=== PATIENT | male | born 1955 | race Hispanic/Latino ===

== ENCOUNTER 2018-06-21 09:46 | Emergency (ER) | payer MEDICARE ==
[~2018-06-21] VITALS: Ht 177.8 cm; Wt 170.0 kg
[~2018-06-21 09:46] MED LIST: DILAUDID8 MG OR; HYDROCO/APAP1 TAB OR; METHADONE5 MG OR; MUSCLE EX; NEURONTIN300 MG OR; SANCTURA20 MG OR; VESICARE5 MG OR
[2018-06-21 10:18] LABS: HEMATOCRIT 35.4 % (39.0-50.0); IMMATURE GRANULOCYTES 0.5 % (0.0-5.0); MEAN CELL VOLUME 86.6 fL CALC (80.0-100.0); MEAN CORPUSCULAR HGB 29.8 pG CALC (26.0-32.0); MEAN CORPUSCULAR HGB CONC 34.5 g/L CALC (32.0-36.0); NEUT# 11.21 thou/uL (1.82-7.42); RED BLOOD COUNT 4.09 mill/uL (4.70-6.10); RED CELL DISTRI WIDTH 12.2 % (11.5-15.5)
[2018-06-21 10:27] LABS: ALBUMIN 3.1 g/dL (3.2-5.0); BILIRUBIN, TOTAL 1.8 mg/dL (0.0-1.4); BUN 8 mg/dL (8-23); BUN/CREATININE RATIO 12 (12-20 (CALC)); CARBON DIOXIDE 23 mmol/l (22-30); CHLORIDE 97 mmol/l (95-108); CREATININE 0.6 mg/dL (0.7-1.3); GFR > 60 ML/MIN (>=60 (CALC)); GFR FOR AFR.AMER. > 60 ML/MIN (>=60 (CALC)); LIPASE 26 u/l (23-300); TOTAL PROTEIN 6.5 g/dL (6.3-8.2)
[2018-06-21 10:28] LABS: ALKALINE PHOSPHATASE 410 u/l (38-126); ANION GAP 13 (6-22 (CALC)); POTASSIUM 4.1 mmol/l (3.5-5.1); SGOT/AST 70 u/l (19-48); SODIUM 129 mmol/l (137-146)
[2018-06-21 10:29] LABS: HEMOGLOBIN 12.2 g/dl (14.0-18.0)
[2018-06-21 10:29] LABS: URINE BILIRUBIN - DIPSTICK NEGATIVE (NEGATIVE); URINE BLOOD DIPSTICK NEGATIVE (NEGATIVE); URINE COLOR YELLOW; URINE GLUCOSE - DIPSTICK NEGATIVE (NEGATIVE); URINE KETONE NEGATIVE (NEGATIVE); URINE LEUK ESTERASE NEGATIVE (NEGATIVE); URINE NITRITE - DIPSTICK NEGATIVE (Negative); URINE PH 6.5 (4.5-8.0); URINE PROTEIN - DIPSTICK NEGATIVE (NEG-TRACE); URINE SPECIFIC GRAVITY <=1.005
[2018-06-21 12:30] VITALS: BP 92/61
== END 2018-06-21 12:45 ==
LOC: ED 09:46
PROVIDERS: Family Medicine
DX: A41.9 Sepsis, unspecified organism (principal); I48.91 Unspecified atrial fibrillation; T81.89XA Other complications of procedures, not elsewhere classified, initial encounter; Y83.6 Removal of other organ (partial) (total) as the cause of abnormal reaction of the patient, or of later complication, without mention of misadventure at the time of the procedure; J43.9 Emphysema, unspecified; J84.10 Pulmonary fibrosis, unspecified
CPT/HCPCS: Q9967

== ENCOUNTER 2020-09-03 15:48 | Observation (INO) | payer MEDICARE ==
[~2020-09-03] VITALS: Ht 157.5 cm; Wt 77.0 kg
--- NOTE | 2020-09-03 15:50 | NUR ---
TO ROOM VIA WHEELCHAIR IN STABLE CONDITION
[2020-09-03] MEDS ORDERED: DILAUDID4 MG PO (16:15)
[2020-09-03] MEDS ORDERED: MORPHINE SUL30 M3 PO (16:15)
[2020-09-03] MEDS ORDERED: TAMSULOSIN HCL0.4 MG PO (16:16)
[2020-09-03] MEDS ORDERED: CYCLOBENZAPR5 MG PO (16:16)
[2020-09-03 16:34] LABS: IMMATURE GRANULOCYTES 0.3 % (0.0-5.0); MEAN CELL VOLUME 86.4 fL CALC (80.0-100.0); MEAN CORPUSCULAR HGB 29.7 pG CALC (26.0-32.0); MEAN CORPUSCULAR HGB CONC 34.4 g/dL CAL (32.0-36.0); NEUT# 9.41 thou/uL (1.82-7.42); RED BLOOD COUNT 4.85 mill/uL (4.70-6.10); RED CELL DISTRI WIDTH 12.2 % (11.5-15.5)
[2020-09-03 16:35] LABS: HEMATOCRIT 41.9 % (39.0-50.0); HEMOGLOBIN 14.4 g/dl (14.0-18.0)
--- NOTE | 2020-09-03 16:40 | NUR ---
TREATMENTS COMPLETED AND PT DENIES ANY NEEDS AT THIS TIME. PT NOT ABLE TO STAND ON HIS OWN, IS VERY SHAKY. FAMILY AT BEDSIDE
[2020-09-03 16:52] LABS: ALBUMIN 3.7 g/dL (3.2-5.0); ALKALINE PHOSPHATASE 234 u/l (38-126); ANION GAP 13 (6-22 (CALC)); BUN 12 mg/dL (8-23); BUN/CREATININE RATIO 17 (12-20 (CALC)); CARBON DIOXIDE 25 mmol/l (22-30); CHLORIDE 95 mmol/l (95-108); CREATININE 0.7 mg/dL (0.7-1.3); GFR > 60 ML/MIN (>=60 (CALC)); GFR FOR AFR.AMER. > 60 ML/MIN (>=60 (CALC)); MAGNESIUM 1.8 mg/dL (1.6-2.3); POTASSIUM 3.9 mmol/l (3.5-5.1); SGOT/AST 51 u/l (19-48); SODIUM 129 mmol/l (137-146); TOTAL PROTEIN 7.6 g/dL (6.3-8.2)
[2020-09-03 16:56] LABS: BILIRUBIN, TOTAL 0.6 mg/dL (0.0-1.4)
--- NOTE | 2020-09-03 17:30 | NUR ---
SECOND SET OF BC COLLECTED AND ANTIBIOTICS GIVEN. DISCUSSED PENDING ADMISSION WITH PT.
[2020-09-03 18:01] LABS: URINE BILIRUBIN - DIPSTICK NEGATIVE (NEGATIVE); URINE BLOOD DIPSTICK NEGATIVE (NEGATIVE); URINE COLOR YELLOW; URINE GLUCOSE - DIPSTICK NEGATIVE (NEGATIVE); URINE KETONE NEGATIVE (NEGATIVE); URINE LEUK ESTERASE NEGATIVE (NEGATIVE); URINE PROTEIN - DIPSTICK NEGATIVE (NEG-TRACE); URINE UROBILINOGEN - DIPSTICK 0.2 E.U./dL (0.2)
[2020-09-03 18:02] LABS: URINE NITRITE - DIPSTICK NEGATIVE (Negative)
--- NOTE | 2020-09-03 18:33 | NUR ---
GAVE REPORT TO NURSE OF MED SURG
--- NOTE | 2020-09-03 18:45 | NUR ---
PT TRANSPORTED TO FLOOR VIA WHEELCHAIR ACCOMPAINED BY ER STAFF. PT ALERT AND ORIENTED X4. NO APPARENT DISTRESS NOTED. RESPIRATIONS EVEN AND UNLABORED. 02 @2L/M VIA NC, PT NOT HOME DEPENDANT. PT DENIES ANY PAIN OR DISCOMFORT. ORIENTED TO ROOM AND CALL LIGHT SYSTEM. FRESH WATER PROVIDED. VARYING EXCEPTIONALITIES TEACHER IN PLACE. IV SITE APPEARS HEALTHY. CALL LIGHT WITHIN REACH. WILL CONTINUE TO MONITOR.
--- NOTE | 2020-09-03 18:50 | NUR ---
PT TRANSPORTED TO MED SURG STABLE AND IN NO DISTRESS. CARE ASSUMED TO MED SURG NURSE
[2020-09-03 19:00] VITALS: BP 127/65
--- NOTE | 2020-09-03 23:30 | NUR ---
PT RESTING IN BED WITH EYES CLOSED. NO APPARENT DISTRESS NOTED. RESPIRATIONS EVEN AND UNLABORED. BUTTONHOLE MAKER HAND IN PLACE. CALL LIGHT WITHIN REACH. WILL CONTINUE TO MONITOR.
[2020-09-04] VITALS: BP 129/67
--- NOTE | 2020-09-04 03:58 | NUR ---
PT C/O BACK PAIN 12/25. MEDICATED WITH PRN DILUADID. ENCOURAGED REPOSITIONING IN BED. NO OTHER CURRENT WANTS OR NEEDS. CALL LIGHT WITHIN REACH. WILL CONTINUE TO MONITOR.
[2020-09-04 04:00] VITALS: BP 123/69
[2020-09-04 05:29] LABS: HEMATOCRIT 42.4 % (39.0-50.0); HEMOGLOBIN 14.4 g/dl (14.0-18.0); IMMATURE GRANULOCYTES 0.4 % (0.0-5.0); MEAN CELL VOLUME 87.4 fL CALC (80.0-100.0); MEAN CORPUSCULAR HGB 29.7 pG CALC (26.0-32.0); NEUT# 4.34 thou/uL (1.82-7.42); RED BLOOD COUNT 4.85 mill/uL (4.70-6.10); RED CELL DISTRI WIDTH 12.5 % (11.5-15.5)
[2020-09-04 05:36] LABS: ANION GAP 11 (6-22 (CALC)); BUN 9 mg/dL (8-23); BUN/CREATININE RATIO 15 (12-20 (CALC)); CARBON DIOXIDE 25 mmol/l (22-30); CHLORIDE 104 mmol/l (95-108); CREATININE 0.6 mg/dL (0.7-1.3); GFR > 60 ML/MIN (>=60 (CALC)); GFR FOR AFR.AMER. > 60 ML/MIN (>=60 (CALC)); POTASSIUM 4.3 mmol/l (3.5-5.1); SODIUM 135 mmol/l (137-146)
--- NOTE | 2020-09-04 07:00 | NUR ---
PT REPORT RECEIVED FROM N[facility]
[2020-09-04 08:00] VITALS: BP 134/70
--- NOTE | 2020-09-04 08:00 | NUR ---
PT WAS FOUND RESTING IN BED IN SEMI-CARL'S POSITION;PT IS A&O X3;MACHINE CAPTAIN WAS UTILIZED PT IS GERMAN-SPEAKING ONLY;VS AND ASSESSMENT WERE COMPLETED;PT HAS NO REPORTS OF PAIN AT THIS TIME;HEART SOUNDS ARE REGULAR IN RATE AND RHYTHM;TELE IS IN PLACE;LUNG SOUNDS ARE CLEAR WITH MINIMAL CRACKLES ASCULTATED IN THE BASES;RESPIRATIONS ARE EVEN AND UNLABORED ON O2@2L VIA NC;#20G IV IN RAC IS RUNNING NS@100ML/HR;IV SITE APPEARS FREE OF COMPLICATIONS AT THIS TIME;PT DOES HAVE SOME TRACE EDEMA IN LL BILATERALLY;PT ALSO HAS CLUBBING NOTED ON ALL FINGERS AND TOES;SAFETY PRECAUTIONS IN PLACE;CALL LIGHT WITHIN REACH;PT ENCOURAGED TO CALL WITH ANY NEEDS OR CONCERNS;BED IN LOWEST POSITION;WILL CONTINUE TO MONITOR.
[2020-09-04 10:30] VITALS: BP 145/70
--- NOTE | 2020-09-04 10:30 | NUR ---
AND EVELYN BRITTON AT BEDSIDE DISCUSSING POC WITH PT
--- NOTE | 2020-09-04 12:00 | NUR ---
PT WAS FOUND RESTING IN BED EATING LUNCH;TELE IS IN PLACE;SAFETY PRECAUTIONS IN PLACE;CALL LIGHT WITHIN REACH;BED IN LOWEST POSITION;WILL CONTINUE TO MONITOR.
--- NOTE | 2020-09-04 16:00 | NUR ---
PT WAS FOUND RESTING IN BED;DAUGHTER AT BEDSIDE;PT IS REPORTING LOWER BACK PAIN OF 8/10;PT MEDICATED WITH DILAUDID 4MG PO PT WAS PREVIOUSLY MEDICATED WITH MORPHINE 30MG ER;TELE IS IN PLACE;#20G IV IN RAC IS SL,PATENT AND APPEARS FREE OF COMPLICATIONS AT THIS TIME;SAFETY PRECAUTIONS IN PLACE;BED IN LOWEST POSITION;CALL LIGHT WITHIN REACH;WILL CONTINUE TO MONITOR.
--- NOTE | 2020-09-04 18:55 | NUR ---
PT CALLED TO REPORT THAT HIS IV WAS BURNING. SITE OBSERVED TO APPEAR HEALTHY, ZITHROMAX ABX RUNNING SO I SLOWED THIS ADMINISTRATION AND PROVIDED ICE PACK TO AREA, HE REPORTS THAT IT FEELS BETTER, BUT I WILL FOLLOW UP TO CONFIRM HEALTHY SITE.
--- NOTE | 2020-09-04 19:10 | NUR ---
IV SITE APPEARS HEALTHY AT THIS TIME AND PT REPORTS THAT HE HAS RELIEF OF THE BURNING TO THE SITE NOW.
[2020-09-04 19:46] VITALS: BP 157/66
--- NOTE | 2020-09-04 21:07 | NUR ---
PT CALLED ASKING FOR HIS NIGHTTIME MEDS, PT WAS MEDICATED AT THIS TIME ORDERS PROVIDE. ABX COMPLETED AT THIS TIME AND IV SITE FLUSHED PATENT, WITH GOOD BLOOD RETURN/SITE APPEARS HEALTHY.
[2020-09-04 23:45] VITALS: BP 158/79
--- NOTE | 2020-09-05 02:40 | NUR ---
PT AWOKE TO MY OPENING THE DOOR. HE WAS ASLEEP, DENIED ANY NEEDS, RETURNING TO SLEEP.
--- NOTE | 2020-09-05 03:35 | NUR ---
PT CALLED FOR PAIN MEDICATION FOR PAIN REPORTED IN HIS BACK 8/10 ON PAIN SCALE. WATER REPLENISHED AND V/S ASSESSED ALSO AT THIS TIME.
[2020-09-05 04:00] VITALS: BP 157/72
[2020-09-05 05:33] LABS: HEMATOCRIT 42.3 % (39.0-50.0); HEMOGLOBIN 14.6 g/dl (14.0-18.0); MEAN CELL VOLUME 87.6 fL CALC (80.0-100.0); MEAN CORPUSCULAR HGB 30.2 pG CALC (26.0-32.0); MEAN CORPUSCULAR HGB CONC 34.5 g/dL CAL (32.0-36.0); RED BLOOD COUNT 4.83 mill/uL (4.70-6.10); RED CELL DISTRI WIDTH 12.3 % (11.5-15.5)
[2020-09-05 05:51] LABS: ALBUMIN 3.3 g/dL (3.2-5.0); ALKALINE PHOSPHATASE 189 u/l (38-126); ANION GAP 11 (6-22 (CALC)); BILIRUBIN, TOTAL 0.5 mg/dL (0.0-1.4); BUN 13 mg/dL (8-23); BUN/CREATININE RATIO 19 (12-20 (CALC)); CARBON DIOXIDE 23 mmol/l (22-30); CHLORIDE 102 mmol/l (95-108); CREATININE 0.7 mg/dL (0.7-1.3); GFR > 60 ML/MIN (>=60 (CALC)); GFR FOR AFR.AMER. > 60 ML/MIN (>=60 (CALC)); POTASSIUM 4.3 mmol/l (3.5-5.1); SGOT/AST 37 u/l (19-48); SODIUM 132 mmol/l (137-146); TOTAL PROTEIN 6.9 g/dL (6.3-8.2)
--- NOTE | 2020-09-05 05:56 | NUR ---
PT MEDICATED ORDERS PROVIDE FOR SCHEDULED PAIN MEDICATION. PT REPORTED PAIN LEVEL 8/10 ON PAIN SCALE. PT APPEARED RESTFUL IN THE BED WITH LIGHTS AND TV OFF.
--- NOTE | 2020-09-05 07:00 | NUR ---
RECIEVED REPORT FROM SHANNON MILLER
[2020-09-05 08:03] VITALS: BP 143/69
--- NOTE | 2020-09-05 08:03 | NUR ---
PT SITTING UP ON SIDE OF BED EATING BREAKFAST. PT IS A/O X3 AND MOSTLY ANGOLAN SPEAKING. ASSESSMENT AND VITALS COMPLETED BP 143/69, HR 81, O2 94% ON ROOM AIR. RESPIRATIONS ARE EVEN AND UNLABORED. CRACKLES NOTED UPON ASULTATION. 2L NC AT BEDSIDE PRN. HEART RHYTHM NORMAL WITH TELE IN PLACE, SR PER ER. BOWEL SOUNDS HYPOACTIVE.LAST BM 09/01/20. #22G IN LW FLUSHED, SITE APPEARS HEALTHY AND PATENT. SKIN INTACT. PT COMPLAINS OF 8/10 BACK PAIN. PT TO BE MEDICATED PER EMAR. PT DENIES OF ANY OTHER NEEDS AT THIS TIME. ALL SAFETY PRECAUTIONS ARE IN PLACE WITH CALL LIGHT IN REACH. ENCOURAGED PT TO CALL FOR ASSISTANCE IF NEEDED. WILL CONTINUE TO MONITOR.
--- NOTE | 2020-09-05 11:09 | NUR ---
DR ORDONEZ AT BEDSIDE. SOFIE AT BEDSIDE TO ASSIST WITH TRANSLATION.
[2020-09-05] MEDS ORDERED: LEVAQUIN750 M1 PO (11:15)
[2020-09-05 11:45] VITALS: BP 148/75
--- NOTE | 2020-09-05 11:57 | NUR ---
PT RESTING IN SEMI FOWLERS POSITION. RESPIRATIONS ARE EVEN AND UNLABORED ON ROOM AIR. #22G IN LW REMAINS IN PLACE. PT COMPLAINS OF 8/10 BACK PAIN. PT STATES THAT HIS PAIN NEVER GOES BELOW A 8. PT DENIES OF ANY NEEDS AT THIS TIME. SUPPOSITORY TO BE GIVEN. ALL SAFETY PRECAUTIONS ARE IN PLACE. WILL CONTINUE TO MONITOR.
--- NOTE | 2020-09-05 11:59 | NUR ---
RT AT BEDSIDE COMPLETING WALK TEST
--- NOTE | 2020-09-05 12:11 | NUR ---
6 minute walk. Patient stopped to rest after 3 minutes. Heart rate remained at 95-96 through out the walk. O2 sat was 91% during 6 minute walk
--- NOTE | 2020-09-05 12:18 | NUR ---
PT REQUEST TO SELF ADMINISTER SUPPOSITORY. PT STATES HE USES THEM AT HOME. PT RE-EDUCATED
--- NOTE | 2020-09-05 13:26 | NUR ---
PT COMPLAINS OF 8/10 BACK PAIN. PT MEDICATED PER SCHEDULED MEDICATIONS. PT INFORMED OF DC. RON RN TO TRANSLATE. PT INFORMED THAT HE WILL NEED A RIDE HOME DUE TO BEING MEDICATED FOR PAIN. PT VERBLAIZED UNDERSTANDING. WILL CONTINUE TO MONITOR.
--- NOTE | 2020-09-05 13:48 | NUR ---
PT AND DAUGHTER EDUCATED ON DC INSTRUCTIONS. IV REMOVED WITH CATAHTER STILL INTACT. TELE MONITORING REMOVED. ATTEMPTED TO NOTIFIED ER, NO ANSWER. DAUGHTER TO DRIVE PT HOME.
--- NOTE | 2020-09-05 13:57 | NUR ---
Discharge instructions given. Patient verbalizes understanding of same. Discharged in stable condition via Wheelchair to Home with staff. All belongings sent with pt. PT DC IN STABLE CONDITION VIA WHEELCHAIR ACCOMPAINED BY CARYL SAHU AND PAUL. PT DC WITH ALL DC INSTRUCTIONS AND BELONGINGS.DAUGHTER TO DRIVE.
== END 2020-09-05 13:55 | disposition home or self-care (01) ==
LOC: ED 15:48 → ED-I 17:56 → ED 18:04 → MS2 18:05
PROVIDERS: Emergency Medicine; Nurse Practitioner Family; ADMIT Internal Medicine; ATTEND Internal Medicine
DX: J18.9 Pneumonia, unspecified organism (principal); R09.02 Hypoxemia; E87.1 Hypo-osmolality and hyponatremia; M54.9 Dorsalgia, unspecified; G89.29 Other chronic pain; F17.210 Nicotine dependence, cigarettes, uncomplicated; Z20.822 Contact with and (suspected) exposure to COVID-19
CPT/HCPCS: G0378

== ENCOUNTER 2021-08-17 07:53 | Day surgery (SDC) | payer MEDICARE ==
[~2021-08-17] VITALS: Ht 157.5 cm; Wt 74.8 kg
[~2021-08-17 07:53] MED LIST changes: +ALPRAZOLAM ER0.5 MG PO; +CYCLOBENZAPR5 MG PO; +DILAUDID4 MG PO; +DITROPAN5 MG/TA1 PO; +LEVAQUIN750 M1 PO; +LIPITOR40 M1 PO; +LUBIPROSTONE24 MCG; +MORPHINE SUL30 M3 PO; +MOVANTIK25 MG; +PAROXETINE20 MG PO; +TAMSULOSIN HCL0.4 MG PO; +TERAZOSIN2 MG PO
[2021-08-17 09:59] VITALS: BP 126/56
== END 2021-08-17 10:15 | disposition home or self-care (01) ==
LOC: ENDO 07:53 → ORM 09:15 → ENDO 10:15
PROVIDERS: ATTEND Surgery
PROC: 0DJD8ZZ Inspection of Lower Intestinal Tract, Via Natural or Artificial Opening Endoscopic (ICD-10-PCS; principal; 2021-08-17)
DX: K59.00 Constipation, unspecified (principal); F41.9 Anxiety disorder, unspecified; M54.9 Dorsalgia, unspecified; M25.50 Pain in unspecified joint; G89.29 Other chronic pain; Z79.891 Long term (current) use of opiate analgesic

== ENCOUNTER 2021-11-03 14:29 | Inpatient (IN) | payer MEDICARE ==
[2021-11-03] VITALS (14 sets, daily range): BP systolic 64–126; BP diastolic 40–72
[~2021-11-03] VITALS: Ht 157.5 cm; Wt 82.0 kg
--- NOTE | 2021-11-03 14:30 | NUR ---
PT TO ROOM VIA WC ASSISTED W/TRANSFER TO STRETCHER.
[2021-11-03 15:05] LABS: HEMATOCRIT 47.1 % (39.0-50.0); HEMOGLOBIN 16.1 g/dl (14.0-18.0); IMMATURE GRANULOCYTES 0.5 % (0.0-5.0); MEAN CELL VOLUME 87.1 fL CALC (80.0-100.0); MEAN CORPUSCULAR HGB 29.8 pG CALC (26.0-32.0); MEAN CORPUSCULAR HGB CONC 34.2 g/dL CAL (32.0-36.0); NEUT# 8.87 thou/uL (1.82-7.42); RED BLOOD COUNT 5.41 mill/uL (4.70-6.10); RED CELL DISTRI WIDTH 12.2 % (11.5-15.5)
--- NOTE | 2021-11-03 15:27 | NUR ---
PATIENT PLACED ON 10L OF OXYGEN ON NON-REBREATHER MASK. AT BEDSIDE, VERBAL ORDER FOR OXYGEN GOAL TO BE ATLEAST 90%. PATIENT REPORTS PAIN TO LOWER BACK AT 0600 THIS, RATES PAIN 8/10. REPORTS NOT BEING ABLE TO URINATE SINE 0700.
--- NOTE | 2021-11-03 15:47 | NUR ---
PATIENT TOLERATED LEDESMA WITH MILD PAIN, REPORTS HAVING ONLY DRANK WATER WITH PILLS TODAY. 70 ML OF URINE OUT WITH LEDESMA.
[2021-11-03 15:49] LABS: PROTHROMBIN TIME 13.6 SECONDS (9.0-12.5)
[2021-11-03 15:53] LABS: INTERNATIONAL NORMALIZED RATIO 1.4 RATIO (0.7-1.3)
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
[2021-11-03 16:11] LABS: URINE BLOOD DIPSTICK NEGATIVE (NEGATIVE); URINE COLOR YELLOW; URINE GLUCOSE - DIPSTICK NEGATIVE (NEGATIVE); URINE KETONE NEGATIVE (NEGATIVE); URINE LEUK ESTERASE NEGATIVE (NEGATIVE); URINE PROTEIN - DIPSTICK NEGATIVE (NEG-TRACE); URINE SPECIFIC GRAVITY 1.015
[2021-11-03 16:14] LABS: URINE BILIRUBIN - DIPSTICK SMALL (NEGATIVE); URINE NITRITE - DIPSTICK NEGATIVE (Negative)
[2021-11-03 16:16] LABS: ALBUMIN 3.9 g/dL (3.2-5.0); BUN 13 mg/dL (8-23); BUN/CREATININE RATIO 14 (12-20 (CALC)); CHLORIDE 97 mmol/l (95-108); GFR FOR AFR.AMER. > 60 ML/MIN (>=60 (CALC)); GFR OTHER RACES > 60 ML/MIN (>=60 (CALC)); LIPASE 109 u/l (23-300); SODIUM 137 mmol/l (137-146); TOTAL PROTEIN 8.1 g/dL (6.3-8.2)
[2021-11-03 16:22] LABS: ALKALINE PHOSPHATASE 532 u/l (38-126); ANION GAP 16 (6-22 (CALC)); BILIRUBIN, TOTAL 1.7 mg/dL (0.0-1.4); CARBON DIOXIDE 28 mmol/l (22-30); SGOT/AST 138 u/l (19-48)
[2021-11-03] MEDS ORDERED: ANORO ELLIPTA 61 AER IN (16:29)
[2021-11-03] MEDS ORDERED: ALPRAZOLAM ER0.5 MG PO (16:31)
--- NOTE | 2021-11-03 16:33 | NUR ---
MED REC COMPLETED WITH PATIENT'S DAUGHTER.
--- NOTE | 2021-11-03 17:18 | NUR ---
AT BEDSIDE TO DISCUSS RESULTS AND PLAN OF CARE, TITRATES O2 TO 2L/MIN VIA NASAL CANNULA
--- NOTE | 2021-11-03 18:10 | NUR ---
FAMILY VISITING AT BEDSIDE. WIATING ON ROOM ASSIGNMENT
--- NOTE | 2021-11-03 18:40 | NUR ---
Admission Note Report Given to: SHANNON CASTANO Transported by: Wheelchair X Stretcher Transported with: X Nurse Transporter X Patent IV X O2 X Engineering Test Specialist Location: ICU X MS2 BEDSIDE REPORT GIVE AND CARE RELINQUISHED.
--- NOTE | 2021-11-03 20:01 | NUR ---
PATIENT SLEEPING. AROUSED TO VERBAL STIMULI. DENIES ANY PAIN OR DISCOMFORT AT THIS TIME. PATIENT STARTED ON IV MAINTAINANCE FLUID. LEDESMA PATENT AND DRAINING. ASSESSMENT COMPLETED. FALL PRECAUTIONS IN PLACE. CALL LLAMAS WITHIN REACH.
[2021-11-04] VITALS (35 sets, daily range): BP systolic 73–185; BP diastolic 39–103
--- NOTE | 2021-11-04 04:50 | NUR ---
PATIENT RESTING IN BED. NO DISTRESS NO NOTED. PATIENT C/O OF THROAT SORENESS. ORAL ASSESSMENT COMPLETED; ORAL MUCOSA APPEARS NORMAL. PATIENT ENCOURAGED DRINK WARM BEVERAGE. FALL PRECAUTIONS IN PLACE. CALL LLAMAS WITHIN REACH.
[2021-11-04 05:56] LABS: ALKALINE PHOSPHATASE 350 u/l (38-126); BUN 12 mg/dL (8-23); BUN/CREATININE RATIO 14 (12-20 (CALC)); CARBON DIOXIDE 25 mmol/l (22-30); CHLORIDE 106 mmol/l (95-108); CREATININE 0.9 mg/dL (0.7-1.3); GFR FOR AFR.AMER. > 60 ML/MIN (>=60 (CALC)); GFR OTHER RACES > 60 ML/MIN (>=60 (CALC)); MAGNESIUM 1.5 mg/dL (1.6-2.3); SGOT/AST 76 u/l (19-48); SODIUM 137 mmol/l (137-146)
[2021-11-04 05:59] LABS: ALBUMIN 2.7 g/dL (3.2-5.0); ANION GAP 10 (6-22 (CALC)); BILIRUBIN, TOTAL 2.8 mg/dL (0.0-1.4); POTASSIUM 4.2 mmol/l (3.5-5.1); TOTAL PROTEIN 5.8 g/dL (6.3-8.2)
--- NOTE | 2021-11-04 06:40 | NUR ---
RECEIVED REPORT FROM SHANNON HERNÁNDEZ.
--- NOTE | 2021-11-04 07:04 | NUR ---
PATIENT C/O OF PAIN BACK. NOTIFIED PHYSICIAN DR. CHRISTINE. RECEIVED ORDERS TO RESTART HOME PAIN MEDICATION. ORDERS FAXED TO PHARMACY.
--- NOTE | 2021-11-04 08:20 | NUR ---
PT SITTING ON BED: A&O X3. EVEN AND UNLABORED RESPIRATIONS: DIMINISHED LUNG SOUNDS UPON AUSCULTATION. TELEMETRY IN PLACE WITH LAST READING SR-86. O2 @3L VIA NASAL CANNULA IN PLACE. IV SITE HEALTHY AND PATENT. ACTIVE BOWEL SOUNDS X4 QUADRANTS. PT C/O BILATERAL HIP PAIN LEVEL 8/10; ADMINISTERED PAIN MED PER EMAR. LEDESMA IN PLACE: TO GRAVITY WITH CLEAR DORA URINE. SAFETY PRECAUTIONS IN PLACE WITH CALL LIGHT IN REACH.
--- NOTE | 2021-11-04 12:15 | NUR ---
PT SITTING ON BED. NO DISTRESS OR PAIN NOTED. IV HEALTHY AND PATENT INFUSING IV FLUIDS PER ORDER. LEDESMA CATHETER IN PLACE: TO GRAVITY WITH CLEAR, DORA URINE. NO NEEDS AT THE TIME. SAFETY PRECAUTIONS IN PLACE WITH CALL LIGHT IN REACH.
--- NOTE | 2021-11-04 14:56 | NUR ---
PT C/O BILATERAL HIP PAIN, LEVEL 10/10; ADMINISTERED PAIN MED PER EMAR. SAFETY PRECAUTIONS IN PLACE WITH CALL LIGHT IN REACH.
--- NOTE | 2021-11-04 16:00 | NUR ---
PT SITTING ON BED LOW CARL'S. NO DISTRESS OR PAIN NOTED. IV SITE HEALTHY AND PATENT INFUSING FLUIDS PER ORDER. NO NEEDS AT THE TIME. SAFETY PRECAUTIONS IN PLACE WITH CALL LIGHT IN REACH.
--- NOTE | 2021-11-04 18:50 | NUR ---
PT C/O BILATERAL HIP PAIN, LEVEL 10/10; ADMINISTERED PAIN MEDICATION PER EMAR. SAFETY PRECAUTIONS IN PLACE WITH CALL LIGHT IN REACH.
--- NOTE | 2021-11-04 19:01 | NUR ---
PATIENT WITH TACHYCARDIA ON MONITOE INTO ROOM TO ASSESS POATIENT. TEMP 105.0. CALLED FOR STAT EKG LABS, ABG, RT AT BEDSIDE. NOTIFIED DR ORDONEZ. ORDERS RECEIVED TO TRANSFER PATIENT TO ICU. PATIENT TRANSFERRED IN BED WITH NRB. PATIENT PACKJED IN ICE WITH OFRIMEV 1GM IV. REPORT PROVIDED TO YANIQUE AT BEDSIDE BY ZACK BIRD.
[2021-11-04 19:48] LABS: ALKALINE PHOSPHATASE 357 u/l (38-126); ANION GAP 13 (6-22 (CALC)); BILIRUBIN, TOTAL 3.4 mg/dL (0.0-1.4); BUN 12 mg/dL (8-23); BUN/CREATININE RATIO 12 (12-20 (CALC)); CARBON DIOXIDE 22 mmol/l (22-30); CHLORIDE 103 mmol/l (95-108); GFR FOR AFR.AMER. > 60 ML/MIN (>=60 (CALC)); GFR OTHER RACES > 60 ML/MIN (>=60 (CALC)); POTASSIUM 4.1 mmol/l (3.5-5.1); SGOT/AST 68 u/l (19-48); SODIUM 133 mmol/l (137-146); TOTAL PROTEIN 6.6 g/dL (6.3-8.2)
[2021-11-04 19:50] LABS: INTERNATIONAL NORMALIZED RATIO 1.3 RATIO (0.7-1.3); PROTHROMBIN TIME 13.2 SECONDS (9.0-12.5)
[2021-11-04 20:00] LABS: HEMATOCRIT 42.8 % (39.0-50.0); HEMOGLOBIN 14.3 g/dl (14.0-18.0); IMMATURE GRANULOCYTES 0.2 % (0.0-5.0); MEAN CELL VOLUME 89.2 fL CALC (80.0-100.0); MEAN CORPUSCULAR HGB 29.8 pG CALC (26.0-32.0); MEAN CORPUSCULAR HGB CONC 33.4 g/dL CAL (32.0-36.0); NEUT# 10.19 thou/uL (1.82-7.42); RED BLOOD COUNT 4.8 mill/uL (4.70-6.10); RED CELL DISTRI WIDTH 12.5 % (11.5-15.5)
--- NOTE | 2021-11-04 20:00 | NUR ---
PT ARRIVED TO UNIT FROM [facility] IN AFIB RVR, NON REBREATHER, AND TEMP OF 103.3. PT WAS ALREADY RECEIVING A ONE TIME DOSE OF IV TYLENOL AND HIS FIRST BOLUS. PTS BLOOD PRESSURE WAS WITHIN NORMAL LIMITS. CONTACTED FOR ADDITIONAL ORDERS. ORDERED TO REDUCE TEMP AND GIVE PT AN ADDITIONAL BOLUS. PT IMMEDATELY GIVEN AN ICE COLD BEDBATH. PT BEING CLOSELY MONITORED.
[2021-11-04 20:06] LABS: D-DIMER 1.48 mg/L (0.19-0.60)
--- NOTE | 2021-11-04 22:00 | NUR ---
SHIFT REASSESSMENT - PT REMAINS ON NONREBREATHER AND COMPLETED HIS SECOND BOLUS OF IV FLUID. STATED PT ON MAINTANCE FLUIDS AND ANTIBIOTICS. PT REMAINS IN AFIB IN THE 130-140'S. GAVE DR.RAJ ANG. WHILE ON PHONE PTS BLOOD PRESSURE DROPPED TO THE 70'S WITH MAP IN THE 50'S. RECEIVED ORDER FOR ANOTHER BOLUS AND TO START IV MAINTAINACE AT 150 POST THE BOLUS. START LEVOPHED IN THE MEAN TIME. PT GIVEN THIRD BOLUS AND LEVOPHED STARTED, PT BEING CLOSELY.
--- NOTE | 2021-11-04 22:15 | NUR ---
PTS TEMP DOWN FROM 103.3 TO 102.2 TO 99.8
--- NOTE | 2021-11-04 22:30 | NUR ---
ATTEMPTED TO GET PTS A CENTRAL LINE DUE TO RECENTLY STARTING LEVOPHED. CONTACTED ER PHYSICIAN AND INFORMED THAT SINCE PT IS ON LOVENOX, HE IS UNABLE TO PLACE THE LINE. INFORMED . PT ON LOW RATE OF LEVOPHED AND IMPROVING SINCE THIRD BOLUS. WILL CONTINUE TO MONITOR.
[2021-11-05] VITALS (50 sets, daily range): BP systolic 88–153; BP diastolic 40–112
--- NOTE | 2021-11-05 | NUR ---
SHIFT REASSESSMENT - PT WEANED OFF OF LEVOPHED SHORTLY AFTER THIRD BOLUS OF IV FLUID. HR DOWN IN THE LOW HUNDREDS AND SUSTAINING IN AFIB. BLOOD PRESSURE IS WITHIN NORMAL LIMITS AND TEMP IS 98.1. DR. CHRISTINE CHANGED ANTIBIOTICS FROM ROCEPHEN TO VANCOMYACIN AND CEPHAPIME.
--- NOTE | 2021-11-05 02:00 | NUR ---
SHIFT REASSESSMENT - PT CONVERTED FROM AFIB BACK TO SINUS RHYTHM. PT WEANED OFF OF NON REBREATHER AND IS NOW ON NASAL CANNULA AT 2L.
--- NOTE | 2021-11-05 04:00 | NUR ---
SHIFT REASSESSMENT - PT REPORTS PAIN AND WAS GIVEN PO DILAUDID.
[2021-11-05 05:34] LABS: HEMATOCRIT 41.6 % (39.0-50.0); HEMOGLOBIN 13.5 g/dl (14.0-18.0); IMMATURE GRANULOCYTES 0.1 % (0.0-5.0); MEAN CELL VOLUME 90.4 fL CALC (80.0-100.0); MEAN CORPUSCULAR HGB 29.3 pG CALC (26.0-32.0); MEAN CORPUSCULAR HGB CONC 32.5 g/dL CAL (32.0-36.0); NEUT# 7.25 thou/uL (1.82-7.42); RED BLOOD COUNT 4.6 mill/uL (4.70-6.10); RED CELL DISTRI WIDTH 12.9 % (11.5-15.5)
[2021-11-05 05:50] LABS: INTERNATIONAL NORMALIZED RATIO 1.5 RATIO (0.7-1.3); PROTHROMBIN TIME 14.2 SECONDS (9.0-12.5)
[2021-11-05 06:01] LABS: ALBUMIN 2.8 g/dL (3.2-5.0); ALKALINE PHOSPHATASE 304 u/l (38-126); AMYLASE 67 u/l (30-110); BILIRUBIN, TOTAL 3.1 mg/dL (0.0-1.4); BUN 12 mg/dL (8-23); BUN/CREATININE RATIO 16 (12-20 (CALC)); CARBON DIOXIDE 21 mmol/l (22-30); CHLORIDE 109 mmol/l (95-108); CREATININE 0.7 mg/dL (0.7-1.3); GFR FOR AFR.AMER. > 60 ML/MIN (>=60 (CALC)); GFR OTHER RACES > 60 ML/MIN (>=60 (CALC)); LIPASE 117 u/l (23-300); MAGNESIUM 1.5 mg/dL (1.6-2.3); SGOT/AST 69 u/l (19-48); SODIUM 136 mmol/l (137-146); TOTAL PROTEIN 6.2 g/dL (6.3-8.2)
[2021-11-05 06:03] LABS: ANION GAP 10 (6-22 (CALC)); POTASSIUM 4.2 mmol/l (3.5-5.1)
--- NOTE | 2021-11-05 09:46 | NUR ---
Visitors at bedside
--- NOTE | 2021-11-05 14:52 | NUR ---
S: LOGAN WASHINGTON is a 66 M who presents with PNEUMONIA. He has a history of SOB. All medications in patient's chart were reviewed. O: VS: BP 142/64 , P 77, RR 17,T 97.9 W 82kg , HT 62IN, Scr= 0.7,CrCl= 83ml/min> A: Blood culture <is pending/show> which is sensitive to <>. Urine culture <is pending/show> which is sensitive to <>. P: Patient is on CEFEPIME 2 GRAMS Q12H . Vancomycin ordered for pharmacy to dose . Start Vancomycin 1 GRAM IV Q12H. Vancomycin trough is drawn before the 4th dose on 11/06/21 @1030. Vancomycin goal trough is between <10-20 mcg/ml>. Pharmacy will follow and or advise on antibiotics use as needed.
--- NOTE | 2021-11-05 20:00 | NUR ---
PT ALERT AND ORIENTED, FOLLOWING COMMANDS, FLUENT IN SAO TOMEAN, REQUIRED SQUARING SHEAR OPERATOR AT BEDSIDE TO ASSIST WITH ASSESSMENT. PT REPORTS PAIN IMMEDATELY, DILAUDID GIVEN WITH OTHER EVENING MEDICATIONS. PTS VITAL SIGNS ARE WITHIN NORMAL LIMITS. PT BEING CLOSELY MONITORED.
--- NOTE | 2021-11-05 22:00 | NUR ---
SHIFT REASSESSMENT - PT REPORTS FEELING POSSIBLY CONSTIPATED. ASSISTED PT TO BEDSIDE CAMMODE AND HE WAS ABLE TO HAVE A LARGE BOWEL MOVEMENT. PT BACK IN BED RESTING COMFORTABLY.
--- NOTE | 2021-11-05 22:07 | NUR ---
PT ASSITED TO BSC AND BACK TO BED. ASSISTED WITH PERICARE. PARTIAL LINEN CHANGE COMPLETED. BSC EMPTIED OF LARGE SOFT BM. PT C/O NASAL DRYNESS AND BLOOD WHEN BLOWING NOSE. OXYGEN HUMIDIFIED BY Renato LIM KNITTING MACHINE TENDER FOR COMFORT.
[2021-11-06] VITALS (91 sets, daily range): BP systolic 86–142; BP diastolic 28–100
--- NOTE | 2021-11-06 | NUR ---
SHIFT REASSESSMENT - PT LOOKS RESTLESS IN BED. PT REQUESTING PAIN MEDICATION, BUT IT HAS NOT BEEN 6 HOURS SINCE HIS LAST DILAUDID. PT AGREED TO WAIT UNTIL THE DILAUDID IS DUE AGAIN, BUT TOOK XANAX TO HELP WITH SLEEP. VITAL SIGNS ARE WITHIN LIMITS. CALL LIGHT AND PERSONAL BELONGS WITHIN HIS REACH.
--- NOTE | 2021-11-06 02:00 | NUR ---
SHIFT REASSESSMENT - PT CONVERTED BACK TO AFIB RVR, HR BETWEEN 130-140'S. PT GIVEN DILAUDID FOR FOR PAIN. RECTAL TEMP 98.4. CONTACTED AND RECEIVED AN ORDER TO GIVE 5MG METOPROLOL IV. PT BEING CLOSELY MONITORED.
--- NOTE | 2021-11-06 04:00 | NUR ---
SHIFT REASSESSMENT - PT REMAINS IN AFIB IN THE 110-120'S. RECEIVED ORDER TO START CARDIZEM DRIP AT 5MG, NO BOLUS.
[2021-11-06 05:29] LABS: HEMATOCRIT 40.6 % (39.0-50.0); HEMOGLOBIN 13.6 g/dl (14.0-18.0); MEAN CELL VOLUME 88.5 fL CALC (80.0-100.0); MEAN CORPUSCULAR HGB 29.6 pG CALC (26.0-32.0); MEAN CORPUSCULAR HGB CONC 33.5 g/dL CAL (32.0-36.0); RED BLOOD COUNT 4.59 mill/uL (4.70-6.10); RED CELL DISTRI WIDTH 12.6 % (11.5-15.5)
[2021-11-06 05:31] LABS: ANION GAP 10 (6-22 (CALC)); BUN 7 mg/dL (8-23); BUN/CREATININE RATIO 12 (12-20 (CALC)); CHLORIDE 103 mmol/l (95-108); CREATININE 0.6 mg/dL (0.7-1.3); GFR FOR AFR.AMER. > 60 ML/MIN (>=60 (CALC)); GFR OTHER RACES > 60 ML/MIN (>=60 (CALC)); MAGNESIUM 1.7 mg/dL (1.6-2.3); POTASSIUM 3.6 mmol/l (3.5-5.1); SODIUM 136 mmol/l (137-146)
[2021-11-06 05:32] LABS: CARBON DIOXIDE 27 mmol/l (22-30)
--- NOTE | 2021-11-06 06:00 | NUR ---
SHIFT REASSESSMENT - CARDIZEM DRIPPED STOPPED AT THIS TIME. PT BECAME HYPOTENSIVE. ONCE STOPPED PTS BLOOD PRESSURE IMPROVED. HR REMAINS IN AFIB IN THE LOW 100'S AT THIS TIME. PT BEING CLOSELY MONITORED.
--- NOTE | 2021-11-06 08:20 | NUR ---
PT SEEN AWAKE, ALERT, ORIENTED X 3. LATVIAN ONLY. LUNGS WITH CRACKLES IN BASES, 3 LPM NC. PT PROVIDED DILAUDID FOR LOWER BACK PAIN RELIEF, MOVES SLOWLY IN BED TO AVOID AGGRAVATING. DAUGHTER AT BEDSIDE AT THIS TIME.
--- NOTE | 2021-11-06 11:02 | NUR ---
PT SEEN BY DR ORDONEZ THIS MORNING. LANOXIN AND METOPROLOL PROVIDED FOR NEW ONSET AFIB. DAUGHTER AT BEDSIDE.
--- NOTE | 2021-11-06 16:12 | NUR ---
NO CHANGE IN STATUS PT SEEN AT REST IN THE BED. PT MOVES SLOWLY PER PAIN IN BACK.
--- NOTE | 2021-11-06 20:00 | NUR ---
PT ALERT AND ORIENTED, LYING FLAT IN BED. MANAGER TESTING AT BEDSIDE TO ASSIST. REPORTS CONTINUED PAIN IN HIS LOWER BACK. DID NOT REQUEST ADDITIONAL MEDICATION, AGREED TO WAIT UNTIL HIS NEXT SCHEDULED DOSE OF DILAUDID, WHICH WAS 0100. PT WAS REPOSITIONED IN BED AND XANAX GIVEN FOR SLEEP PER HIS REQUEST.
--- NOTE | 2021-11-06 22:00 | NUR ---
SHIFT REASSESSMENT - PT SIGNIFICANTLY UNCOMFORTABLE IN BED. REQUIRED ASSISTANCE WITH REPOSITIONING IN BED. PT NOW RESTING COMFORTBALY AT THIS TIME. VITAL SIGNS ARE WITHIN NORMAL LIMITS. CALL LIGHT WITHIN REACH. PT BEING CLOSELY MONITORED.
[2021-11-07] VITALS (38 sets, daily range): BP systolic 60–163; BP diastolic 34–97
--- NOTE | 2021-11-07 | NUR ---
SHIFT REASSESSMENT - BOTH PTS IV'S NEEDED TO BE REMOVED DUE TO EITHER DISCOMFORT OR LEAKAGE. NEW IV STARTED.
--- NOTE | 2021-11-07 02:00 | NUR ---
SHIFT REASSESSMENT - PT DID RECEIVE HIS PAIN MEDICATION AND HAS BEEN RESTING COMFORTABLY SINCE.
--- NOTE | 2021-11-07 04:00 | NUR ---
SHIFT REASSESSMENT - PT SEEMS LOOKS TO BE IN A GREAT MOOD AND SAYS HE IS FEELING BETTER PER SALES PERFORMANCE MANAGER, BUT HIS BACK STILL HURTS. WE ASSISTED PT TO REPOSITION IN BED AND HE LOOKED TO BE SLEEPING. PTS VITAL SIGNS ARE WITHIN NORMAL LIMITS. CALL LIGHT AND PERSONAL BELONGINGS ARE WITHIN REACH. PT BEING CLOSELY MONITORED.
[2021-11-07 04:14] LABS: HEMATOCRIT 38.7 % (39.0-50.0); MEAN CELL VOLUME 88.2 fL CALC (80.0-100.0); MEAN CORPUSCULAR HGB 29.6 pG CALC (26.0-32.0); MEAN CORPUSCULAR HGB CONC 33.6 g/dL CAL (32.0-36.0); RED BLOOD COUNT 4.39 mill/uL (4.70-6.10); RED CELL DISTRI WIDTH 12.6 % (11.5-15.5)
[2021-11-07 05:09] LABS: ALBUMIN 2.6 g/dL (3.2-5.0); ALKALINE PHOSPHATASE 329 u/l (38-126); ANION GAP 9 (6-22 (CALC)); BUN 7 mg/dL (8-23); BUN/CREATININE RATIO 12 (12-20 (CALC)); CARBON DIOXIDE 28 mmol/l (22-30); CHLORIDE 103 mmol/l (95-108); CREATININE 0.6 mg/dL (0.7-1.3); GFR FOR AFR.AMER. > 60 ML/MIN (>=60 (CALC)); GFR OTHER RACES > 60 ML/MIN (>=60 (CALC)); POTASSIUM 3.6 mmol/l (3.5-5.1); SGOT/AST 41 u/l (19-48); SODIUM 136 mmol/l (137-146); TOTAL PROTEIN 5.8 g/dL (6.3-8.2)
--- NOTE | 2021-11-07 08:06 | NUR ---
PT PROVIDED MED FOR PAIN TO LOWER BACK, CHRONIC. PT WITH LITTLE APPETITE FOR BREAKFAST. DAUGHTER AT BEDSIDE PROVIDES SUPPORT AND TRANSLATION.
--- NOTE | 2021-11-07 09:53 | NUR ---
PT SEEN BY DR ORDONEZ THIS MORNING. LASIX GIVEN PER ORDER. PAIN MED INCREASED IN FREQUENCY, PT AWARE. PHYSICAL THERAPY HAS ASSISTED TO CHAIR AT BEDSIDE, WELL TOLERATED BY PT.
--- NOTE | 2021-11-07 16:32 | NUR ---
PT HAS BEEN TO ECHO AND BACK, NOW AT REST IN THE BED. FREQUENCY CHANGE IN DILAUDID HAS ALLEVIATED SOME OF HIS BACK PAIN.
--- NOTE | 2021-11-07 18:08 | NUR ---
FAMILY VISITS AT BEDSIDE. PT AND FAMILY UPDATED ON LATEST RESULTS, CXR AND ECHO. PT EATING MEAL.
--- NOTE | 2021-11-07 19:00 | NUR ---
BEDSIDE REPORT RECEIVED FROM Akosua ALEXANDRA RN, CARE OF PT ASSUMED AT THIS TIME. PT DENIES NEEDS AT THIS TIME. CALL LLAMAS WITHIN REACH, AGREES TO CALL PRN.
--- NOTE | 2021-11-07 20:00 | NUR ---
ASSESMENT COMPLETED. PT DENIES CURRENT NEEDS. CALL LLAMAS WITHIN REACH, AGREES TO CALL PRN.
--- NOTE | 2021-11-07 22:00 | NUR ---
PT APPEARS TO BE SLEEPING COMFORTABLY. CALL LLAMAS REMAINS WITHIN REACH.
--- NOTE | 2021-11-07 23:00 | NUR ---
PT HR INCREASES AND SPO2 AND NIBP DROPS, UPON ENTERING ROOM PT IS FOUND TO BE DTRUGGLING TO TURN HIMSELF ON HIS SIDE WITH NO SUCCESS. MOTION CREATING ARTIFACT LEADING TO INNACCURATE MONITOR READINGS. PT HOWEVER IS NOTED TO HAVE INCREASE WORK OF BREATHING AND INCREASE HR WITH THIS ACTIVITY. PT ASSISTED TO TURN ON HIS LEFT SIDE. PT ENCOURGED TO ASK FOR HELP WITH ACTIVITY SUCH TURNING OR SITTING UP. PT AGREES. 02 INCREASED TO 5L/MIN. Renato LIM ASSISTANT PROFESSOR OF THEATER MADE AWARE OF CHANGE.
--- NOTE | 2021-11-07 23:15 | NUR ---
CALL RECEIVED FROM DR. ORDONEZ, UPDATES PROVIDED. ORDERS RECEIVED.
--- NOTE | 2021-11-07 23:39 | NUR ---
ABG RESULTS AND CURRENT VS REPORTED TO DR. ORDONEZ. Lilliana CHERRY CPT AT BEDSIDE COLLECTING LABS.
--- NOTE | 2021-11-07 23:59 | NUR ---
PT'S WORK OF BREATHING HAS RETURNED TO BASELINE. SP02 96%ON 5L/M VIA NC. RR 27/MIN. NIBP 97/48mmHg (66 MAP). AFIB 90'S-110'S ON MONITOR.
[2021-11-08] VITALS (46 sets, daily range): BP systolic 78–143; BP diastolic 42–86
--- NOTE | 2021-11-08 | NUR ---
SHIFT REASSESSMENT - PT REPORTS PAIN. PTS 02SAT SHOWING 88% ON THE MONITOR. MANUAL CHECK SHOWED 90 TO 92%. CALL LIGHT AND PERSONAL BELONGINGS WITHIN REACH. WILL CONTINUE TO MONITOR CLOSELY.
--- NOTE | 2021-11-08 02:00 | NUR ---
PT APPEARS TO BE SLEEPING COMFORTABLY. CALL LLAMAS REMAINS WITHIN REACH.
--- NOTE | 2021-11-08 03:50 | NUR ---
PT AFIB RVR ON MONITOR, SUSTAINED. CARDIZEMM GTT RESUMED.
[2021-11-08 05:37] LABS: HEMATOCRIT 39.8 % (39.0-50.0); HEMOGLOBIN 13.2 g/dl (14.0-18.0); IMMATURE GRANULOCYTES 0.3 % (0.0-5.0); MEAN CELL VOLUME 88.1 fL CALC (80.0-100.0); MEAN CORPUSCULAR HGB 29.2 pG CALC (26.0-32.0); MEAN CORPUSCULAR HGB CONC 33.2 g/dL CAL (32.0-36.0); NEUT# 5.75 thou/uL (1.82-7.42); RED BLOOD COUNT 4.52 mill/uL (4.70-6.10); RED CELL DISTRI WIDTH 12.6 % (11.5-15.5)
[2021-11-08 06:03] LABS: ALBUMIN 2.5 g/dL (3.2-5.0); ALKALINE PHOSPHATASE 315 u/l (38-126); ANION GAP 9 (6-22 (CALC)); BILIRUBIN, TOTAL 1.7 mg/dL (0.0-1.4); BUN 10 mg/dL (8-23); BUN/CREATININE RATIO 16 (12-20 (CALC)); CARBON DIOXIDE 30 mmol/l (22-30); CHLORIDE 100 mmol/l (95-108); CREATININE 0.6 mg/dL (0.7-1.3); GFR FOR AFR.AMER. > 60 ML/MIN (>=60 (CALC)); GFR OTHER RACES > 60 ML/MIN (>=60 (CALC)); MAGNESIUM 1.8 mg/dL (1.6-2.3); POTASSIUM 3.4 mmol/l (3.5-5.1); SGOT/AST 32 u/l (19-48); SODIUM 135 mmol/l (137-146); TOTAL PROTEIN 5.6 g/dL (6.3-8.2)
--- NOTE | 2021-11-08 07:14 | NUR ---
BEDSIDE REPORT GIVEN TO Akosua ALEXANDRA RN, CARE OF PT SURRENDERED AT THIS TIME.
--- NOTE | 2021-11-08 10:36 | NUR ---
PT OOB IN CHAIR AT THIS TIME AFTER HOUSE SUPERINTENDENT DAVID AMBULATED WITH PT INTO HALLWAY. PT MEDICATED FOR PAIN POSSIBLE PER LOWER BACK PAIN CHRONICALLY. DR ORDONEZ IN ROOM, LISTENS TO LUNG SOUNDS, ORDERS STEROIDS AND RESP TX PER WHEEZING.
--- NOTE | 2021-11-08 10:53 | NUR ---
S: LOGAN WASHINGTON is a 66 M who presents with <pneumonia>. He has a history of <hypertension, chronic back pain, LUAN +TOB >. All medications in patient's chart were reviewed. O: VS: BP <112/52mmHg>, P<85bpm>, RR<26bpm>,T<97.2 F> W <81.98kg>, HT<157.48cm>, Scr=<0.6>,CrCl= <66.5ml/min> A: Preliminary blood culture shows no growth. P: Patient is on <cefepime 2gm IV q8h, metronidazole 500mg q8h>. Vancomycin ordered for pharmacy to dose. Start Vancomycin <1g> IV Q<8>H. Vancomycin trough is drawn before the 4th dose on <11/08/2021 @1700>. Vancomycin goal trough is between <15-20 mcg/ml>. VANCOMYCIN TROUGH ON 11/07/21 IS 16MCG/ML Pharmacy will follow and or advise on antibiotics use as needed.
--- NOTE | 2021-11-08 16:55 | NUR ---
PT VISITED BY FAMILY THIS AFTERNOON, SUPPORTIVE. PT AT REST IN THE BED AFTER BEING UP IN CHAIR FOR SOME TIME. CARDIZEM IS OFF PER NSR WITH APPROPRIATE RATE.
--- NOTE | 2021-11-08 18:30 | NUR ---
PT WITH AT BEDSIDE FOR VISIT. PT REMAINS IN SINUS RHYTHM WITHOUT CARDIZEM DRIP, WHICH WAS STOPPED EARLIER. PT MOVED SLOWLY IN THE BED PER LOW BACK PAIN.
--- NOTE | 2021-11-08 20:00 | NUR ---
PT ALERT AND ORIENTED. FAMILY AT BEDSIDE. PT REQUIRES TWO PERSON ASSIST TO THE COMMODE. PTS FAMILY AT BEDSIDE ASSISTING PT WITH APPLY BENGAY. BENGAY WAS APPLIED BY PTS DAUGHTER TO HIS ENTIRE BODY. PT ALSO REQUESTED PAIN MEDICATION TIMED, INSTEAD OF PRN. PT ASSISTED BACK TO BED. VITAL SIGNS WITHIN NORMAL LIMITS. WILL CONTINUE TO MONITOR CLOSELY.
[2021-11-09] VITALS (30 sets, daily range): BP systolic 94–175; BP diastolic 46–89
--- NOTE | 2021-11-09 02:00 | NUR ---
SHIFT REASSESSMENT - NO CHANGE IN PT STATUS SINCE INITIAL ASSESSMENT. WILL CONTINUE TO MONITOR CLOSELY. CALL LIGHT AND PERSONAL BELONGINGS WITHIN REACH. WILL CONTINUE TO MONITOR CLOSELY.
--- NOTE | 2021-11-09 04:00 | NUR ---
SHIFT REASSESSMENT - NO CHANGE IN PT STATUS SINCE PREVIOUS ASSESSMENT. PT BEING CLOSELY MONITORED. CALL LIGHT AND PERSONAL BELONGINGS WITHIN REACH. WILL CONTINUE TO MONITOR CLOSELY.
[2021-11-09 06:02] LABS: HEMOGLOBIN 13.1 g/dl (14.0-18.0); MEAN CELL VOLUME 87.6 fL CALC (80.0-100.0); MEAN CORPUSCULAR HGB 29.4 pG CALC (26.0-32.0); MEAN CORPUSCULAR HGB CONC 33.6 g/dL CAL (32.0-36.0); RED BLOOD COUNT 4.45 mill/uL (4.70-6.10); RED CELL DISTRI WIDTH 12.5 % (11.5-15.5)
[2021-11-09 06:06] LABS: ANION GAP 11 (6-22 (CALC)); BUN 10 mg/dL (8-23); BUN/CREATININE RATIO 17 (12-20 (CALC)); CARBON DIOXIDE 28 mmol/l (22-30); CHLORIDE 102 mmol/l (95-108); CREATININE 0.6 mg/dL (0.7-1.3); GFR FOR AFR.AMER. > 60 ML/MIN (>=60 (CALC)); GFR OTHER RACES > 60 ML/MIN (>=60 (CALC)); POTASSIUM 3.8 mmol/l (3.5-5.1); SODIUM 137 mmol/l (137-146)
--- NOTE | 2021-11-09 07:00 | NUR ---
RECEIVE REPORT FROM YANIQUE ORTEGA.
--- NOTE | 2021-11-09 08:00 | NUR ---
PATIENT ALERT AND ORITNED X3. ASSESSMENT HEAD TO TOE COMPLETE. HEART RHYTM NORMAL AT THIS TIME. PATIENT WITH A.FIB HISTORY SINUS AT THIS TIME.BOWEL SOUNDS ACTIVE. DOES NOT RESPIRATORY DISTRESS AT THIS TIME. OXIGEN 5 LITER NC.IV SITE NOTED. PATIENT WITH CHRONIC BACK PAIN HISTORY MEDS FOR PAIN IN SCHEDULE ACCORDING MEDICAL ORDER. PATIENT IS EDUCATED ABOUD MEDICATIONS AND NURSING PLAN FOR TODAY. PATIENT REFER UNDERSTAND. SAFETY AND FALL PRECAUTIONS IN PLACE. CALL LIGHT WITIN REACH.
--- NOTE | 2021-11-09 11:20 | NUR ---
CONSULT WITH DIE TESTER DONE.
--- NOTE | 2021-11-09 12:39 | NUR ---
REASSESSMENT - PT DOES NOT REPORTS PAIN AT THIS TIME. O2 SAT SHOWING 93% ON THE MONITOR. SAFETY AND FALL PRECAUTIONS IN PLACE. CALL LIGHT WITHIN REACH.
--- NOTE | 2021-11-09 14:29 | NUR ---
S: LOGAN WASHINGTON is a 66 M who presents with <pneumonia>. He has a history of <chronic back pain, LUAN, +TOB>. All medications in patient's chart were reviewed. O: VS: BP <123/55mmHg>, P<79bpm>, RR<23bpm>,T<97.2F> W <81.98kg>, HT<157.48cm>, Scr=<0.6>,CrCl= <66.5ml/min> A: Preliminary blood culture show no growth. P: Patient is on <cefepime IV 2gm q8h and metronidazole IV 500mg q8h>. Vancomycin ordered for pharmacy to dose. Start Vancomycin <1gm> IV Q<8>H. Vancomycin trough is drawn before the 4th dose on <11/10/2021/@0900>. Vancomycin goal trough is between <15-20 mcg/ml>. Pharmacy will follow and or advise on antibiotics use as needed.
--- NOTE | 2021-11-09 14:38 | NUR ---
pt given pain meds, family at bedside
--- NOTE | 2021-11-09 18:00 | NUR ---
pt AO, at bedside, Jazmín came to translate and communicate/answer questions with family who VU
--- NOTE | 2021-11-09 18:03 | NUR ---
[facility] transportation eta 30 minutes for patient supervisor general
--- NOTE | 2021-11-09 18:44 | NUR ---
pt being transferred to [facility], crew here now for pick-up, he has recently gotten PRN CARLTON sloan, family at bedside
--- NOTE | 2021-11-09 19:15 | NUR ---
PT LEFT VIA TRANSPORT TO [facility] AT 1915.
--- NOTE | 2021-11-09 19:24 | NUR ---
CALLED [facility] AND SPOKE TO SHANNON HILL AND REPORT GIVEN.
== END 2021-11-09 19:15 | DRG 193 ==
LOC: ED 14:29 → ED-I 17:35 → ED 17:46 → MS2 17:47 → ICU 17:47 → MS2 18:56 → ICU 11-04 19:30
PROVIDERS: Family Medicine; Nurse Practitioner Family; ADMIT Internal Medicine; ATTEND Internal Medicine
PROC: 0T9B70Z Drainage of Bladder with Drainage Device, Via Natural or Artificial Opening (ICD-10-PCS; principal; 2021-11-03)
PROC: 3E033XZ Introduction of Vasopressor into Peripheral Vein, Percutaneous Approach (ICD-10-PCS; 2021-11-04)
DX: J18.9 Pneumonia, unspecified organism (principal); J96.01 Acute respiratory failure with hypoxia; A41.9 Sepsis, unspecified organism; R65.20 Severe sepsis without septic shock; I95.9 Hypotension, unspecified; I48.0 Paroxysmal atrial fibrillation; R74.8 Abnormal levels of other serum enzymes; I49.1 Atrial premature depolarization; J43.9 Emphysema, unspecified; I10 Essential (primary) hypertension; N40.1 Benign prostatic hyperplasia with lower urinary tract symptoms; R33.8 Other retention of urine; M54.50 Low back pain, unspecified; G89.29 Other chronic pain; Z90.49 Acquired absence of other specified parts of digestive tract; Z96.89 Presence of other specified functional implants; Z87.891 Personal history of nicotine dependence; Z20.822 Contact with and (suspected) exposure to COVID-19; Z13.6 Encounter for screening for cardiovascular disorders
CPT/HCPCS: 76706; J0131; J0692; J1160; J1650; J3475; Q9967

== ENCOUNTER 2021-12-02 15:54 | Emergency (ER) | payer MEDICARE ==
[~2021-12-02] VITALS: Ht 157.5 cm; Wt 81.0 kg
[~2021-12-02 15:54] MED LIST changes: +ANORO ELLIPTA 61 AER IN
[2021-12-02 16:10] VITALS: BP 150/71
[2021-12-02 16:16] VITALS: BP 122/56
[2021-12-02 16:26] LABS: HEMATOCRIT 39.4 % (39.0-50.0); HEMOGLOBIN 13.6 g/dl (14.0-18.0); IMMATURE GRANULOCYTES 0.3 % (0.0-5.0); MEAN CELL VOLUME 86.2 fL CALC (80.0-100.0); MEAN CORPUSCULAR HGB 29.8 pG CALC (26.0-32.0); MEAN CORPUSCULAR HGB CONC 34.5 g/dL CAL (32.0-36.0); NEUT# 6.87 thou/uL (1.82-7.42); RED BLOOD COUNT 4.57 mill/uL (4.70-6.10); RED CELL DISTRI WIDTH 13.5 % (11.5-15.5)
[2021-12-02 16:31] VITALS: BP 127/58
[2021-12-02 16:41] LABS: ALKALINE PHOSPHATASE 330 u/l (38-126); BUN 10 mg/dL (8-23); BUN/CREATININE RATIO 18 (12-20 (CALC)); CARBON DIOXIDE 24 mmol/l (22-30); CHLORIDE 99 mmol/l (95-108); CREATININE 0.5 mg/dL (0.7-1.3); GFR FOR AFR.AMER. > 60 ML/MIN (>=60 (CALC)); GFR OTHER RACES > 60 ML/MIN (>=60 (CALC)); SGOT/AST 39 u/l (19-48); SODIUM 131 mmol/l (137-146); TOTAL PROTEIN 6.2 g/dL (6.3-8.2)
[2021-12-02 16:45] LABS: ALBUMIN 3.6 g/dL (3.2-5.0); ANION GAP 13 (6-22 (CALC)); BILIRUBIN, TOTAL 0.7 mg/dL (0.0-1.4); POTASSIUM 4.7 mmol/l (3.5-5.1)
[2021-12-02 16:46] VITALS: BP 126/60
[2021-12-02] MEDS ORDERED: TRAZODONE100 MG PO (16:55)
[2021-12-02 17:00] VITALS: BP 133/57
[2021-12-02 17:04] VITALS: BP 133/57
== END 2021-12-02 17:14 | disposition home or self-care (01) ==
LOC: ED 15:54
PROVIDERS: Family Medicine
DX: G25.2 Other specified forms of tremor (principal); G47.00 Insomnia, unspecified; R51.9 Headache, unspecified

== ENCOUNTER 2022-03-12 11:07 | Inpatient (IN) | payer MEDICARE ==
[2022-03-12] VITALS (21 sets, daily range): BP systolic 38–163; BP diastolic 24–138
[~2022-03-12] VITALS: Ht 157.5 cm; Wt 77.3 kg
[~2022-03-12 11:07] MED LIST changes: +DITROPAN XL5 MG PO; -DITROPAN5 MG/TA1 PO; +TRAZODONE100 MG PO
--- NOTE | 2022-03-12 12:00 | NUR ---
PT TO ROOM 10 VIA WHEELCHAIR ON HOME O2 AT 2 LITERS.
--- NOTE | 2022-03-12 13:04 | NUR ---
Reassessment of patient completed. No distress noted.
[2022-03-12] MEDS ORDERED: PROTONIX40 M2 PO (13:14)
[2022-03-12 13:34] LABS: BASO% 0.5 % (0-3); EOS% 2.3 % (0-8); HEMATOCRIT 39.4 % (39.0-50.0); HEMOGLOBIN 13.9 g/dl (14.0-18.0); IMMATURE GRANULOCYTES 0.2 % (0.0-5.0); LYMPH% 14.6 % (15-41); MEAN CELL VOLUME 86.4 fL CALC (80.0-100.0); MEAN CORPUSCULAR HGB 30.5 pG CALC (26.0-32.0); MEAN CORPUSCULAR HGB CONC 35.3 g/dL CAL (32.0-36.0); MONO% 5.6 % (2-13); NEUT# 7.81 thou/uL (1.82-7.42); NEUT% 76.8 % (42-76); RED BLOOD COUNT 4.56 mill/uL (4.70-6.10); RED CELL DISTRI WIDTH 12.5 % (11.5-15.5)
[2022-03-12 13:44] LABS: ALBUMIN 4.1 g/dL (3.2-5.0); ALKALINE PHOSPHATASE 183 u/l (38-126); BILIRUBIN, TOTAL 0.7 mg/dL (0.0-1.4); BUN 9 mg/dL (8-23); BUN/CREATININE RATIO 11 (12-20 (CALC)); CHLORIDE 96 mmol/l (95-108); CREATININE 0.8 mg/dL (0.7-1.3); GFR FOR AFR.AMER. > 60 ML/MIN (>=60 (CALC)); GFR OTHER RACES > 60 ML/MIN (>=60 (CALC)); POTASSIUM 4.3 mmol/l (3.5-5.1); SGOT/AST 30 u/l (19-48); SODIUM 130 mmol/l (137-146)
[2022-03-12 13:49] LABS: ANION GAP 9 (6-22 (CALC)); CARBON DIOXIDE 29 mmol/l (22-30); TOTAL PROTEIN 7.8 g/dL (6.3-8.2)
--- NOTE | 2022-03-12 15:41 | NUR ---
CHECKED ON PT. NAD AT THIS TIME. PT IS TRYING TO RELAX ON THE STRETCHER.
[2022-03-13] VITALS (9 sets, daily range): BP systolic 112–211; BP diastolic 48–96
--- NOTE | 2022-03-13 04:50 | NUR ---
PT ARRIVED FROM ER. PT IS ALERT AND ORIENTED. VSS, NO SIGNS AND SYMPTOMS OF DISTRESS NOTED. PT REPORTS LOW BACK PAIN. PT RECEIVED TYLENOL. DOCTOR WAS CALLED FOR ADDITIONAL PAIN MEDICATION. PT RECEIVED DILAUDID PO FOR PAIN. WILL CONTINUE TO ASSESS AND MONITOR PT.
--- NOTE | 2022-03-13 07:54 | NUR ---
PT RESTING IN LOW FOWLERS POSITION PT A/OX3 HEART RHYHTM ON TELE. RESPIRAITONS ON 3L OF OXYGEN TO BE TITRATED IF POSSIBLE . IV SITENOTED TO LAC S.L PT C/O PAIN PT TO REASSESS BP AND TO BE MEDICATED PER EMAR. ALL SAFETY PRECAUTIONS IN PLACE WITH CALL LIGHT INREACH.
[2022-03-13 09:56] LABS: BASO% 0.4 % (0-3); HEMATOCRIT 36.5 % (39.0-50.0); HEMOGLOBIN 12.9 g/dl (14.0-18.0); IMMATURE GRANULOCYTES 0.3 % (0.0-5.0); LYMPH% 16.4 % (15-41); MEAN CELL VOLUME 84.3 fL CALC (80.0-100.0); MEAN CORPUSCULAR HGB 29.8 pG CALC (26.0-32.0); MEAN CORPUSCULAR HGB CONC 35.3 g/dL CAL (32.0-36.0); MONO% 6.1 % (2-13); NEUT# 5.52 thou/uL (1.82-7.42); NEUT% 74.8 % (42-76); RED BLOOD COUNT 4.33 mill/uL (4.70-6.10); RED CELL DISTRI WIDTH 12.3 % (11.5-15.5)
[2022-03-13] MEDS ORDERED: MUCUS RELIEF E600 MG PO (09:58)
[2022-03-13 10:41] LABS: ALBUMIN 3.5 g/dL (3.2-5.0); ALKALINE PHOSPHATASE 170 u/l (38-126); ANION GAP 12 (6-22 (CALC)); BILIRUBIN, TOTAL 0.7 mg/dL (0.0-1.4); BUN 9 mg/dL (8-23); BUN/CREATININE RATIO 15 (12-20 (CALC)); CARBON DIOXIDE 27 mmol/l (22-30); CHLORIDE 100 mmol/l (95-108); CREATININE 0.6 mg/dL (0.7-1.3); GFR FOR AFR.AMER. > 60 ML/MIN (>=60 (CALC)); GFR OTHER RACES > 60 ML/MIN (>=60 (CALC)); POTASSIUM 4.2 mmol/l (3.5-5.1); SGOT/AST 29 u/l (19-48); SODIUM 135 mmol/l (137-146); TOTAL PROTEIN 6.5 g/dL (6.3-8.2)
--- NOTE | 2022-03-13 12:55 | NUR ---
PT C/O PAIN PT TO BE MEDICATED PER EMAR.
--- NOTE | 2022-03-13 20:00 | NUR ---
RECEIVED REPORT FROM NURSE EILEEN, PATIENT RESTING IN BED ON CONTINUOUS O2 @ 3LPM VIA NC SALINE LOCK ON LAC PATENT FLUSHES WELL, LUNG SOUNDS CLEAR, ACTIVE BOWEL SOUNDS, CALL LIGHT IN REACH.
--- NOTE | 2022-03-14 | NUR ---
PATIENT RESTING EASY TO AWAKEN, C/O ANXIETY PRN XANAX GIVEN.
[2022-03-14 03:08] VITALS: BP 144/48
--- NOTE | 2022-03-14 04:01 | NUR ---
PATINET C/O PAIN EARLIER GIVEN DILAUDID, EFFCETIVE, PATIENT CURRENTLY RESTING EYES CLOSED, REMAINS ON O2 @ 3LPM VIA NC, NOT IN DISTRESS, CALL LIGHT IN REACH.
[2022-03-14 05:43] LABS: BASO% 0.4 % (0-3); EOS% 2.2 % (0-8); HEMATOCRIT 34.9 % (39.0-50.0); HEMOGLOBIN 12.3 g/dl (14.0-18.0); IMMATURE GRANULOCYTES 0.2 % (0.0-5.0); LYMPH% 19.5 % (15-41); MEAN CELL VOLUME 86.4 fL CALC (80.0-100.0); MEAN CORPUSCULAR HGB 30.4 pG CALC (26.0-32.0); MEAN CORPUSCULAR HGB CONC 35.2 g/dL CAL (32.0-36.0); MONO% 7.3 % (2-13); NEUT# 5.94 thou/uL (1.82-7.42); NEUT% 70.4 % (42-76); RED BLOOD COUNT 4.04 mill/uL (4.70-6.10); RED CELL DISTRI WIDTH 12.4 % (11.5-15.5)
[2022-03-14 06:04] LABS: ALBUMIN 3.4 g/dL (3.2-5.0); ALKALINE PHOSPHATASE 147 u/l (38-126); ANION GAP 9 (6-22 (CALC)); BUN 7 mg/dL (8-23); BUN/CREATININE RATIO 10 (12-20 (CALC)); CARBON DIOXIDE 29 mmol/l (22-30); CHLORIDE 100 mmol/l (95-108); CREATININE 0.7 mg/dL (0.7-1.3); GFR FOR AFR.AMER. > 60 ML/MIN (>=60 (CALC)); GFR OTHER RACES > 60 ML/MIN (>=60 (CALC)); POTASSIUM 3.7 mmol/l (3.5-5.1); SGOT/AST 27 u/l (19-48); SODIUM 134 mmol/l (137-146); TOTAL PROTEIN 6.7 g/dL (6.3-8.2)
[2022-03-14 06:07] LABS: BILIRUBIN, TOTAL 0.3 mg/dL (0.0-1.4)
[2022-03-14 06:37] VITALS: BP 161/66
--- NOTE | 2022-03-14 07:44 | NUR ---
0700 BEDSIDE REPORT RECEIVED FROM SHANNON MEYER. PT SITTING UP ON SIDE OF BED WITH NO SIGNS OF DISTRESS NOTED. RESPIRATIONS EVEN AND UNLABORED. OXYGEN THERAPY @ 3L OH. PT UPDATED ON PLAN OF CARE, WILL NEED REINFORCEMENT. ALL PERSONAL ITEMS WITHIN REACH. SAFETY PRECAUTIONS IN PLACE.
--- NOTE | 2022-03-14 09:02 | NUR ---
pt on 3L nc sat 98%
[2022-03-14 10:13] VITALS: BP 157/64
[2022-03-14 16:09] VITALS: BP 148/56
[2022-03-14 19:07] VITALS: BP 132/49
--- NOTE | 2022-03-14 20:22 | NUR ---
RECEIVED REPORT FROM DAYTIME NURSE. PT ON BED: A&O X3. EVEN AND UNLABORED RESPIRATIONS. O2 @ 3L VIA NASAL CANNULA IN PLACE. TELEMETRY IN PLACE. IV SITE HEALTHY AND PATENT. ACTIVE BOWEL SOUNDS X4 QUADRATS. BSC AT BEDSIDE. PT C/O LOWER BACK PAIN, LEVEL 9/10; ADMINISTERED PAIN MED PER EMAR. ADMINISTERED XANAX PER PT'S REQUEST. INCENTIVE SPIROMETER AT REACH; PT REMINDED TO USE SAME, PT SHOWED UNDERSTANDING AND AGREED TO SAME. SAFETY PRECAUTIONS IN PLACE WITH CALL LIGHT IN REACH.
[2022-03-15 00:29] VITALS: BP 156/61
--- NOTE | 2022-03-15 00:42 | NUR ---
PT C/O LOWER BACK PAIN, LEVEL 8/10; ADMINISTERED PAIN MED PER EMAR. SAFETY PRECAUTIONS IN PLACE WITH CALL LIGHT IN REACH.
--- NOTE | 2022-03-15 04:33 | NUR ---
PT C/O LOWER BACK PAIN, LEVEL 9/10; ADMINISTERED PAIN MED PER EMAR. IV SITE HEALTHY AND PATENT. SAFETY PRECAUTIONS IN PLACE WITH CALL LIGHT IN REACH.
[2022-03-15 05:02] VITALS: BP 163/65
[2022-03-15 05:03] LABS: BASO% 0.4 % (0-3); EOS% 2.4 % (0-8); HEMOGLOBIN 12.5 g/dl (14.0-18.0); IMMATURE GRANULOCYTES 0.6 % (0.0-5.0); LYMPH% 28.1 % (15-41); MEAN CELL VOLUME 86.1 fL CALC (80.0-100.0); MEAN CORPUSCULAR HGB 29.9 pG CALC (26.0-32.0); MEAN CORPUSCULAR HGB CONC 34.7 g/dL CAL (32.0-36.0); MONO% 6.3 % (2-13); NEUT# 4.88 thou/uL (1.82-7.42); NEUT% 62.2 % (42-76); RED BLOOD COUNT 4.18 mill/uL (4.70-6.10); RED CELL DISTRI WIDTH 12.4 % (11.5-15.5)
[2022-03-15 05:20] LABS: ALBUMIN 3.6 g/dL (3.2-5.0); ALKALINE PHOSPHATASE 145 u/l (38-126); ANION GAP 10 (6-22 (CALC)); BILIRUBIN, TOTAL 0.3 mg/dL (0.0-1.4); BUN 8 mg/dL (8-23); BUN/CREATININE RATIO 11 (12-20 (CALC)); CARBON DIOXIDE 31 mmol/l (22-30); CHLORIDE 103 mmol/l (95-108); CREATININE 0.7 mg/dL (0.7-1.3); GFR FOR AFR.AMER. > 60 ML/MIN (>=60 (CALC)); GFR OTHER RACES > 60 ML/MIN (>=60 (CALC)); SGOT/AST 31 u/l (19-48); SODIUM 139 mmol/l (137-146); TOTAL PROTEIN 6.7 g/dL (6.3-8.2)
[2022-03-15 06:45] VITALS: BP 163/65
--- NOTE | 2022-03-15 07:29 | NUR ---
0700 BEDSIDE REPORT RECEIVED FROM DANIEL HAIRSTON. PT RESTING IN BED WITH EYES CLOSED, EASILY AROUSED WHEN CALLED BY NAME. NO COMPLAINTS VOICED AT THIS TIME. RESPIRATIONS EVEN AND UNLABORED. OXYGEN THERAPY AT 3L NC. ALL PERSONAL BELONGINGS WITHIN REACH. SAFETY PRECAUTIONS IN PLACE.
[2022-03-15 10:36] VITALS: BP 154/66
[2022-03-15] MEDS ORDERED: ZITHROMAX250 MG PO (12:02)
[2022-03-15 14:35] VITALS: BP 122/59
--- NOTE | 2022-03-15 17:55 | NUR ---
PT DISCHARGED HOME WITH FAMILY. IV REMOVED WITH TIP INTACT, NO IV RELATED COMPLICATIONS NOTED. TELE REMOVED. DC INSTRUCTIONS TRANSLATED BY STUDENT NURSE VIPUL, BOTH VERBALIZE UNDERSTANDING AND DENIES QUESTIONS. PT DISCHARGED HOME WITH ALL PERSONAL BELONGINGS VIA WC WITH HOME OXYGEN.
== END 2022-03-15 18:00 | DRG 871 ==
LOC: ED 11:07 → ED-I 15:40 → ED 15:59 → MS2 16:00
PROVIDERS: Family Medicine; Nurse Practitioner Family; ADMIT Internal Medicine; ATTEND Internal Medicine
DX: A41.9 Sepsis, unspecified organism (principal); J18.9 Pneumonia, unspecified organism; J96.11 Chronic respiratory failure with hypoxia; J43.9 Emphysema, unspecified; I10 Essential (primary) hypertension; F41.9 Anxiety disorder, unspecified; E78.5 Hyperlipidemia, unspecified; M25.551 Pain in right hip; M54.50 Low back pain, unspecified; G89.29 Other chronic pain; Z99.81 Dependence on supplemental oxygen; Z20.822 Contact with and (suspected) exposure to COVID-19

== ENCOUNTER 2022-07-18 09:36 | Emergency (ER) | payer MEDICARE, MEDICAID ==
[~2022-07-18] VITALS: Ht 157.5 cm; Wt 72.5 kg
[2022-07-18] VITALS (11 sets, daily range): BP systolic 110–150; BP diastolic 46–92
[~2022-07-18 09:36] MED LIST changes: +MUCUS RELIEF E600 MG PO; +PROTONIX40 M2 PO; +ZITHROMAX250 MG PO
[2022-07-18 10:09] LABS: BASO% 0.4 % (0-3); HEMATOCRIT 36.4 % (39.0-50.0); HEMOGLOBIN 12.1 g/dl (14.0-18.0); IMMATURE GRANULOCYTES 0.8 % (0.0-5.0); LYMPH% 20.1 % (15-41); MEAN CELL VOLUME 87.5 fL CALC (80.0-100.0); MEAN CORPUSCULAR HGB 29.1 pG CALC (26.0-32.0); MEAN CORPUSCULAR HGB CONC 33.2 g/dL CAL (32.0-36.0); MONO% 5.2 % (2-13); NEUT# 5.16 thou/uL (1.82-7.42); NEUT% 69.5 % (42-76); RED BLOOD COUNT 4.16 mill/uL (4.70-6.10); RED CELL DISTRI WIDTH 12.4 % (11.5-15.5)
[2022-07-18 10:21] LABS: ALBUMIN 3.5 g/dL (3.2-5.0); ALKALINE PHOSPHATASE 219 u/l (38-126); ANION GAP 10 (6-22 (CALC)); BILIRUBIN, TOTAL 0.5 mg/dL (0.2-1.3); BUN 17 mg/dL (8-23); BUN/CREATININE RATIO 19 (12-20 (CALC)); CARBON DIOXIDE 30 mmol/l (22-30); CHLORIDE 94 mmol/l (95-108); CREATININE 0.9 mg/dL (0.7-1.3); GFR FOR AFR.AMER. > 60 ML/MIN (>=60 (CALC)); GFR OTHER RACES > 60 ML/MIN (>=60 (CALC)); POTASSIUM 4.1 mmol/l (3.5-5.1); SGOT/AST 38 u/l (19-48); SODIUM 130 mmol/l (137-146); TOTAL PROTEIN 6.6 g/dL (6.3-8.2)
[2022-07-18 11:11] LABS: URINE BLOOD DIPSTICK NEGATIVE (NEGATIVE); URINE COLOR YELLOW; URINE GLUCOSE - DIPSTICK NEGATIVE (NEGATIVE); URINE KETONE NEGATIVE (NEGATIVE); URINE LEUK ESTERASE NEGATIVE (NEGATIVE); URINE PROTEIN - DIPSTICK NEGATIVE (NEG-TRACE); URINE SPECIFIC GRAVITY <=1.005; URINE UROBILINOGEN - DIPSTICK 0.2 E.U./dL (0.2)
[2022-07-18 11:14] LABS: URINE NITRITE - DIPSTICK NEGATIVE (Negative)
[2022-07-18] MEDS ORDERED: TRAMADOL HYDROC50 M1 PO (11:33)
[2022-07-18 11:48] LABS: URINE BILIRUBIN - DIPSTICK NEGATIVE (NEGATIVE)
== END 2022-07-18 12:50 | disposition home or self-care (01) ==
LOC: ED 09:36
PROVIDERS: Family Medicine
DX: F41.9 Anxiety disorder, unspecified (principal); M54.9 Dorsalgia, unspecified; Z20.822 Contact with and (suspected) exposure to COVID-19; I10 Essential (primary) hypertension; E78.5 Hyperlipidemia, unspecified; I89.1 Lymphangitis; J84.10 Pulmonary fibrosis, unspecified; R00.1 Bradycardia, unspecified

== ENCOUNTER 2022-08-14 21:08 | Inpatient (IN) | payer MEDICARE, MEDICAID ==
[2022-08-14] VITALS (9 sets, daily range): BP systolic 118–159; BP diastolic 50–71
[~2022-08-14] VITALS: Ht 157.5 cm; Wt 70.0 kg
[~2022-08-14 21:08] MED LIST changes: +TRAMADOL HYDROC50 M1 PO
[2022-08-14 22:11] LABS: BASO% 0.2 % (0-3); EOS% 3.8 % (0-8); HEMATOCRIT 37.9 % (39.0-50.0); HEMOGLOBIN 12.6 g/dl (14.0-18.0); IMMATURE GRANULOCYTES 0.3 % (0.0-5.0); MEAN CELL VOLUME 87.7 fL CALC (80.0-100.0); MEAN CORPUSCULAR HGB 29.2 pG CALC (26.0-32.0); MEAN CORPUSCULAR HGB CONC 33.2 g/dL CAL (32.0-36.0); MONO% 8.8 % (2-13); NEUT# 4.88 thou/uL (1.82-7.42); NEUT% 79.9 % (42-76); RED BLOOD COUNT 4.32 mill/uL (4.70-6.10); RED CELL DISTRI WIDTH 12.3 % (11.5-15.5)
[2022-08-14 22:15] LABS: ALBUMIN 3.8 g/dL (3.2-5.0); ALKALINE PHOSPHATASE 303 u/l (38-126); ANION GAP 9 (6-22 (CALC)); BILIRUBIN, TOTAL 0.7 mg/dL (0.2-1.3); BUN 11 mg/dL (8-23); BUN/CREATININE RATIO 16 (12-20 (CALC)); CARBON DIOXIDE 28 mmol/l (22-30); CHLORIDE 96 mmol/l (95-108); CREATININE 0.7 mg/dL (0.7-1.3); GFR FOR AFR.AMER. > 60 ML/MIN (>=60 (CALC)); GFR OTHER RACES > 60 ML/MIN (>=60 (CALC)); POTASSIUM 4.4 mmol/l (3.5-5.1); SODIUM 129 mmol/l (137-146); TOTAL PROTEIN 7.1 g/dL (6.3-8.2)
[2022-08-14 22:16] LABS: SGOT/AST 69 u/l (19-48)
[2022-08-15] VITALS (17 sets, daily range): BP systolic 135–195; BP diastolic 54–138
[2022-08-15] MEDS ORDERED: HYDROMORPHON4 MG PO ×2 (04:05→04:08)
[2022-08-15] MEDS ORDERED: PAROXETINE40 MG PO (04:09)
[2022-08-15] MEDS ORDERED: XANAX0.5 MG PO (04:11)
[2022-08-15] MEDS ORDERED: TERAZOSIN2 MG PO ×2 (04:12→04:13)
[2022-08-15] MEDS ORDERED: OXYBUTYNIN CHLOR5 M2 PO (04:12)
[2022-08-15] MEDS ORDERED: ANORO ELLIPTA 61 AER IN (04:14)
[2022-08-15] MEDS ORDERED: IPRATROPIU0.5 MG/3 M IN (04:15)
[2022-08-15] MEDS ORDERED: ATORVASTATIN CA40 MG PO (04:16)
[2022-08-15] MEDS ORDERED: PROTONIX40 M2 PO (04:17)
[2022-08-15] MEDS ORDERED: KAPSPARGO SPRIN25 MG PO (04:19)
[2022-08-15 07:20] LABS: URINE BILIRUBIN - DIPSTICK NEGATIVE (NEGATIVE); URINE BLOOD DIPSTICK TRACE-INTACT (NEGATIVE); URINE COLOR YELLOW; URINE GLUCOSE - DIPSTICK NEGATIVE (NEGATIVE); URINE KETONE NEGATIVE (NEGATIVE); URINE LEUK ESTERASE NEGATIVE (NEGATIVE); URINE PH 7.5 (4.5-8.0); URINE PROTEIN - DIPSTICK NEGATIVE (NEG-TRACE); URINE UROBILINOGEN - DIPSTICK 0.2 E.U./dL (0.2)
[2022-08-15 07:28] LABS: URINE NITRITE - DIPSTICK NEGATIVE (Negative)
[2022-08-16 00:23] VITALS: BP 147/54
[2022-08-16 04:13] VITALS: BP 155/69
[2022-08-16 05:19] LABS: BASO% 0.1 % (0-3); HEMATOCRIT 39.7 % (39.0-50.0); HEMOGLOBIN 13.3 g/dl (14.0-18.0); IMMATURE GRANULOCYTES 0.2 % (0.0-5.0); LYMPH% 10.6 % (15-41); MEAN CELL VOLUME 86.7 fL CALC (80.0-100.0); MEAN CORPUSCULAR HGB CONC 33.5 g/dL CAL (32.0-36.0); MONO% 6.3 % (2-13); NEUT# 8.38 thou/uL (1.82-7.42); NEUT% 82.8 % (42-76); RED BLOOD COUNT 4.58 mill/uL (4.70-6.10); RED CELL DISTRI WIDTH 12.5 % (11.5-15.5)
[2022-08-16 05:37] LABS: ALBUMIN 3.7 g/dL (3.2-5.0); ALKALINE PHOSPHATASE 319 u/l (38-126); BUN 15 mg/dL (8-23); BUN/CREATININE RATIO 22 (12-20 (CALC)); CARBON DIOXIDE 27 mmol/l (22-30); CHLORIDE 104 mmol/l (95-108); CREATININE 0.7 mg/dL (0.7-1.3); GFR FOR AFR.AMER. > 60 ML/MIN (>=60 (CALC)); GFR OTHER RACES > 60 ML/MIN (>=60 (CALC)); MAGNESIUM 1.9 mg/dL (1.6-2.3); POTASSIUM 4.3 mmol/l (3.5-5.1); SGOT/AST 44 u/l (19-48); TOTAL PROTEIN 7.1 g/dL (6.3-8.2)
[2022-08-16 05:40] LABS: ANION GAP 11 (6-22 (CALC)); BILIRUBIN, TOTAL 0.4 mg/dL (0.2-1.3); SODIUM 138 mmol/l (137-146)
[2022-08-16 07:07] VITALS: BP 165/62
[2022-08-16 08:00] VITALS: BP 165/62
[2022-08-16] MEDS ORDERED: DEXAMETHASON6 MG PO (10:38)
[2022-08-16 10:40] VITALS: BP 179/68
[2022-08-16] MEDS ORDERED: ZITHROMAX250 MG PO (10:41)
== END 2022-08-16 12:50 | disposition home or self-care (01) | DRG 177 ==
LOC: ED 21:08 → ICU 08-15 05:05 → MS2 08-15 07:39
PROVIDERS: Emergency Medicine; Nurse Practitioner Family; ADMIT Internal Medicine; ATTEND Internal Medicine
DX: U07.1 COVID-19 (principal); J12.82 Pneumonia due to coronavirus disease 2019; J96.11 Chronic respiratory failure with hypoxia; J43.9 Emphysema, unspecified; I10 Essential (primary) hypertension; I48.0 Paroxysmal atrial fibrillation; F03.90 Unspecified dementia, unspecified severity, without behavioral disturbance, psychotic disturbance, mood disturbance, and anxiety; F41.9 Anxiety disorder, unspecified; G89.4 Chronic pain syndrome; E78.5 Hyperlipidemia, unspecified; Z99.81 Dependence on supplemental oxygen
CPT/HCPCS: J1650; Q9967

== ENCOUNTER 2022-08-21 21:22 | Inpatient (IN) | payer MEDICARE, MEDICAID ==
[~2022-08-21] VITALS: Ht 157.5 cm; Wt 75.2 kg
[2022-08-21] VITALS (7 sets, daily range): BP systolic 105–169; BP diastolic 48–85
[~2022-08-21 21:22] MED LIST changes: +ATORVASTATIN CA40 MG PO; +DEXAMETHASON6 MG PO; +HYDROMORPHON4 MG PO; +IPRATROPIU0.5 MG/3 M IN; +KAPSPARGO SPRIN25 MG PO; +OXYBUTYNIN CHLOR5 M2 PO; +PAROXETINE40 MG PO; +XANAX0.5 MG PO
--- NOTE | 2022-08-21 22:10 | NUR ---
arrived via ems stretcher in serious condition, labored resp noted, lips appear cyanotic, 02 on RA was 71% , immediately placed on , md summoned to room, rt called to place pt on bipap.
[2022-08-21 22:15] LABS: BASO% 0.1 % (0-3); EOS% 0.2 % (0-8); HEMATOCRIT 41.4 % (39.0-50.0); HEMOGLOBIN 14.2 g/dl (14.0-18.0); LYMPH% 7.9 % (15-41); MEAN CELL VOLUME 84.7 fL CALC (80.0-100.0); MEAN CORPUSCULAR HGB CONC 34.3 g/dL CAL (32.0-36.0); MONO% 3.7 % (2-13); NEUT# 8.4 thou/uL (1.82-7.42); NEUT% 87.1 % (42-76); RED BLOOD COUNT 4.89 mill/uL (4.70-6.10); RED CELL DISTRI WIDTH 12.2 % (11.5-15.5)
[2022-08-21 22:23] LABS: ALBUMIN 3.6 g/dL (3.2-5.0); ALKALINE PHOSPHATASE 241 u/l (38-126); BILIRUBIN, TOTAL 0.5 mg/dL (0.2-1.3); BUN 24 mg/dL (8-23); BUN/CREATININE RATIO 32 (12-20 (CALC)); CARBON DIOXIDE 30 mmol/l (22-30); CREATININE 0.7 mg/dL (0.7-1.3); GFR FOR AFR.AMER. > 60 ML/MIN (>=60 (CALC)); GFR OTHER RACES > 60 ML/MIN (>=60 (CALC)); POTASSIUM 4.6 mmol/l (3.5-5.1); SGOT/AST 69 u/l (19-48); TOTAL PROTEIN 6.8 g/dL (6.3-8.2)
[2022-08-21 22:28] LABS: ANION GAP 12 (6-22 (CALC)); SODIUM 128 mmol/l (137-146)
[2022-08-21 22:29] LABS: CHLORIDE 91 mmol/l (95-108)
--- NOTE | 2022-08-21 22:30 | NUR ---
PT WITH HOB ELEVATED, BIPAP IN PLACE, PT APPEARS ANXIOUS, PULLING AT MASK, RT CALLED TO BEDSIDE, PT REORIENTED TO MEDICAL EQUIPMENT AND NEED OF. HE VERBALIZED UNDERSTANDING. 1
[2022-08-21 22:31] LABS: D-DIMER 1.61 mg/L (0.19-0.60)
[2022-08-21 22:45] LABS: PROTHROMBIN TIME 10.4 SECONDS (9.0-12.5)
--- NOTE | 2022-08-21 23:07 | NUR ---
PT PULLING AT MEDICAL EQUIPMENT AND TAKING BIPAP MASK OFF. MD AWARE, ORDER GIVEN FOR ATIVAN 1MG IV. PT MEDICATED , CONTINUES TO APPEAR ANXIOUS AND PULLING AT MEDICAL EQUIPMENT.
--- NOTE | 2022-08-21 23:45 | NUR ---
PT NOT TOLERATING BIPAP, CONTINUALLY PULLING OFF MASK, DESATS IMMEDIATELY AFTER BIPAP REMOVED, DECISION MADE DR ORTIZ FOR INTUBATION. 7.0 ET TUBE PLACED AND TAPED 24 AT THE LIP. OG TUBE PLACED, PLACEMENT CHECKED VIA AUSCULTATION.
[2022-08-22] VITALS (165 sets, daily range): BP systolic 63–182; BP diastolic 35–91
[2022-08-22 01:14] LABS: URINE BILIRUBIN - DIPSTICK NEGATIVE (NEGATIVE); URINE BLOOD DIPSTICK NEGATIVE (NEGATIVE); URINE COLOR YELLOW; URINE GLUCOSE - DIPSTICK NEGATIVE (NEGATIVE); URINE KETONE NEGATIVE (NEGATIVE); URINE LEUK ESTERASE NEGATIVE (NEGATIVE); URINE PH 7.5 (4.5-8.0); URINE PROTEIN - DIPSTICK TRACE mg/dL (NEG-TRACE)
--- NOTE | 2022-08-22 01:14 | NUR ---
ASSISTED MD WITH CENTRAL LINE INSERTION. TRIPLE LUMEN PLACED IN RIGHT FEMORAL AREA WITHOUT DIFFICULTY.
[2022-08-22 01:15] LABS: URINE NITRITE - DIPSTICK NEGATIVE (Negative)
--- NOTE | 2022-08-22 01:45 | NUR ---
VITAL SIGNS REMAIN STABLE AT THIS TIME. RT AT BEDSIDE.
--- NOTE | 2022-08-22 02:25 | NUR ---
PT TO CT VIA STRETCHER, ACCOMPANIED BY STAFF NURSE AND RT. SMALL AMOUNT OF DRAINAGE/BUBBLING NOTED FROM PT'S MOUTH, RT VOICES CONCERN FOR POSSIBLE LEAK, 02 SAT REMAINS 99- 100% , MD NOTIFIED BY RT ABOUT CONCERNS.
--- NOTE | 2022-08-22 02:40 | NUR ---
PT TO ICU FROM CT VIA STRETCER, VITAL SIGNS REMAIN STABLE, PT PLACED IN ICU BED, DR ORTIZ CALLED TO CHECK FOR POSSIBLE AIRLEAK IN ET TUBE. TOBI, ICU NURSE, DR ORTIZ, AND RT AT BEDSIDE WITH PT. 02 SAT REMAINS 99%. CARE OF PATIENT HANDED OVER TO TOBI RN AT THIS TIME.
--- NOTE | 2022-08-22 03:00 | NUR ---
ADMITED FROM ED INTUBATED AND ON LEVO AND PROPOFOL DRIP IN STABLE CONDITION. POSITIVE FOR COVID. HAS A LEDESMA DRAINING WITHIN NORMAL LIMITS URINE. HAS RIGHT FEMORAL CENTRAL LINE INTACT AND PATENT. HAS AN OG TUBE PATENT NOTHING DRAINS. SCD'S ON. MEPILEX APPLIED ON THE COCCYC AREA. TITRATING THE DRIPS TO EFFECT.
--- NOTE | 2022-08-22 05:00 | NUR ---
PT IN STABLE CONDITION AND VS'S. TITRATING THE MEDS TO EFFECT. URINE OUTPUT WITHNG NORMAL LIMITS. TURNED Q2 HOURS. MONITORING.
--- NOTE | 2022-08-22 07:42 | NUR ---
TELEPHONE ORDER RECIEVED FROM DR. ORDONEZ TO ORDER EKG. PT'S HR SUSTAINING 40-45 RANGE
--- NOTE | 2022-08-22 08:00 | NUR ---
REPORT RECIEVED FROM NIGHT RN. PT INTUBATED AND SEDATED FOR ACUTE RESP FAILURE/ COVID PNEUMONIA. PT CURRENTLY ON IV FLUIDS, PROPOFOL, AND LEVOPHED. VSS BUT PT IS BRADYCARDIC IN THE 45-55 RANGE. PT TOLERATING CURRENT VENTILATOR SETTINGS WELL. BOWEL SOUNDS EXTREMELY HYPOACTIVE; ABDOMEN SOFT NON-DISTENDED. VOIDING BY LEDESMA CATHETER. PULSES STRONG ALL EXTREMETIES. SKIN WARM/DIAPHORETIC/INTACT. AFEBRILE. IV ACCESS 20G LAC AND 20G RAC; R FEMORAL TRIPLE LUMEN. SEDATION LEVEL APPROPRIATE.
--- NOTE | 2022-08-22 10:30 | NUR ---
MULTIPLE PHONE CALLS AND 2 VOICEMAILS LEFT FOR OFFICE OF DR. YOUNG FOR CARDIOLOGY CONSULT.
--- NOTE | 2022-08-22 10:45 | NUR ---
FAMILY AT BEDSIDE. CROATIAN SPEAKING ONLY BUT GRAND-DAUGHTER THERE FOR TRANSLATION. DR. ORDONEZ AT BEDSIDE TO SPEAK WITH FAMILY.
--- NOTE | 2022-08-22 12:10 | NUR ---
PT'S DAUGHTER AT BEDSIDE. PT IN STABLE CONDITION. HR TANIKA IN THE 37-41 RANGE. CARDIOLOGY CONSULTED; AWAITING TELE-CONSULT.
--- NOTE | 2022-08-22 14:00 | NUR ---
PT IN STABLE CONDITION. REPOSITIONED. HR CONTINUES TO RANGE FROM 35-41. AWAITING TELE-CARDIOLOGY CONSULT.
--- NOTE | 2022-08-22 16:05 | NUR ---
PT VS STABLE AT THIS TIME. CURRENT HR 42. STILL AWAITING TELE-CARDIOLOGY CONSULT. PT SEDATED APPROPRIATELY. TOLERATING CURRENT VENT SETTINGS WELL. PT REPOSITIONED SLIGHTLY. PACER PADS APPLIED IN CASE OF EMERGENCY.
--- NOTE | 2022-08-22 17:00 | NUR ---
TELE-CARDIOLOGY CONSULT COMPLETED.
--- NOTE | 2022-08-22 18:04 | NUR ---
PT RESTING IN BED, TOLERATING VENT SETTINGS WELL. LABS DRAWN. VSS AT THIS TIME. PT HAD APPROXIMATELY 3 MINUTE PERIOD OF HR IN THE 50-60S BUT HAS SINCE RETURNED TO RECENT BASELINE OF 41. PT SUCTIONED AND REPOSITIONED.
--- NOTE | 2022-08-22 18:20 | NUR ---
FAMILY AT BEDSIDE. VSS. HR40
--- NOTE | 2022-08-22 19:00 | NUR ---
temp 94.5 ax, 96.4 rectal. maximino hugger placed on pt. vent cont assisted by pt. roller helper shows sinus audra hr 40. ivf infusing per rt groin tlc. saldivar cath in place. urine clear yellow. bilat scds & air/contact precautions cont. turned & repositioned. requires total care for all needs.
--- NOTE | 2022-08-22 19:22 | NUR ---
dr uribe notified of mag results. no new orders.
--- NOTE | 2022-08-22 20:10 | NUR ---
temp 96.3 ax. maximino lemons.
--- NOTE | 2022-08-22 21:10 | NUR ---
temp 96.2 ax. maximino lemons.
--- NOTE | 2022-08-22 23:00 | NUR ---
TEMP 97.1. VENT CONT. PT REQUIRES FREQ SX.
[2022-08-23] VITALS (123 sets, daily range): BP systolic 92–192; BP diastolic 40–141
--- NOTE | 2022-08-23 00:01 | NUR ---
vent cont assisted by pt. satellite project site monitor shows sinus rhythm.
--- NOTE | 2022-08-23 01:20 | NUR ---
temp 98.9 ax. maximino hugger removed. property assessment monitor shows sinus rhythm.
--- NOTE | 2022-08-23 03:40 | NUR ---
coughing freq. cont to require freq sx. quality assurance monitor chassis shows sinus rhythm.
--- NOTE | 2022-08-23 04:00 | NUR ---
blood drawn & sent to lab. bath & linen change done. cont to sx cassandra. urine blood tinged this am.
--- NOTE | 2022-08-23 05:05 | NUR ---
xray here. pcxr obtained. rt here. abgs drawn.
[2022-08-23 07:34] LABS: HEMATOCRIT 36.3 % (39.0-50.0); MEAN CELL VOLUME 87.1 fL CALC (80.0-100.0); MEAN CORPUSCULAR HGB CONC 33.3 g/dL CAL (32.0-36.0); RED BLOOD COUNT 4.17 mill/uL (4.70-6.10); RED CELL DISTRI WIDTH 12.6 % (11.5-15.5)
[2022-08-23 07:41] LABS: HEMOGLOBIN 12.1 g/dl (14.0-18.0)
--- NOTE | 2022-08-23 08:00 | NUR ---
REPORT RECIEVED FROM NIGHT RN. PT INTUBATED AND SEDATED. PT CLENCHING JAW AND MOVING HEAD SLIGHTLY; SEDATION INCREASED PER PROTOCOL. PT IS TACHYPNEIC AND BREATHING OVER THE VENT; ABDOMINAL BREATHING. TORB FROM DR. ORDONEZ TO ORDER DILAUDED. PT MEDICATED AND ABDOMINAL BREATHING SUBSIDING. BOWEL SOUNDS PRESENT. LUNG SOUNDS RHONCHI. HEART RHYTHM REGULAR; PT IS NSR. ET TUBE SECURED; VENT SETTINGS REVIEWED BY RT THIS MORNING. ORAL SUCRTIONING PERFORMED. OG TUBE ADVANCED 10CM PER RECOMMENDATIONS BASED ON CXR FROM THIS MORNING. OG SECURED AND ATTACHED TO WALL SUCTION FOR LIS; NO GASTRIC SECRETIONS. PT VOIDING WITH LEDESMA CATHETER; URINE IS DORA IN COLOR. NO BM. PULSES SREONG ALL EXTREMETIES. SKIN WARM AND SLIGHTLY DIAPHOTRETIC. GENERALIZED, NON-PITTING EDEMA PRESENT. AXILLARY TEMPERATURE 99.8. VSS AT THIS TIME.
[2022-08-23 09:02] LABS: ALBUMIN 2.6 g/dL (3.2-5.0); ALKALINE PHOSPHATASE 202 u/l (38-126); ANION GAP 10 (6-22 (CALC)); BILIRUBIN, TOTAL 0.4 mg/dL (0.2-1.3); BUN 19 mg/dL (8-23); BUN/CREATININE RATIO 27 (12-20 (CALC)); CARBON DIOXIDE 26 mmol/l (22-30); CHLORIDE 104 mmol/l (95-108); CREATININE 0.7 mg/dL (0.7-1.3); GFR FOR AFR.AMER. > 60 ML/MIN (>=60 (CALC)); GFR OTHER RACES > 60 ML/MIN (>=60 (CALC)); POTASSIUM 4.3 mmol/l (3.5-5.1); SGOT/AST 53 u/l (19-48); SODIUM 136 mmol/l (137-146); TOTAL PROTEIN 5.2 g/dL (6.3-8.2)
--- NOTE | 2022-08-23 09:04 | NUR ---
DR. ORDONEZ AT BEDSIDE TO ASSESS PATIENT. FiO2 LOWERED BY RT. PULMONOLOGY CONSULT PLACED.
--- NOTE | 2022-08-23 09:52 | NUR ---
PT RESTING COMFORTABLY IN BED. TOLERATING CURRENT VENT SETTINGS WELL. BREATHING APPEARS NON-LABORED. VSS AT THIS TIME BUT PT IS BRADYCARDIC IN THE 40'S.
--- NOTE | 2022-08-23 10:02 | NUR ---
PT'S DAUGHTER AT BEDSIDE
--- NOTE | 2022-08-23 10:16 | NUR ---
RT AT BEDSIDE TO ADJUST VENT SETTINGS. FAMILY STILL AT BEDSIDE. PT OPENED HIS EYES WHEN DAUGHTER SPOKE AND WAS MAINTAINING EYE CONTACT WITH HER.
--- NOTE | 2022-08-23 11:56 | NUR ---
PT RESTING COMFORTABLY IN BED. WAS STARTING TO ABDOMINAL BREATHE; MEDICATED FOR PAIN PER ORDERS. VSS. DAUGHTER AT BEDSIDE.
--- NOTE | 2022-08-23 14:12 | NUR ---
PT. EXTUBATED AND PLACED ON 4L NC.
--- NOTE | 2022-08-23 14:28 | NUR ---
PT EXTUBATED BY RT AT 1405. PT TOLERATED WELL. PLACED ON 4L NC. FAMILY AT BEDSIDE. CURRENT O2 SAT 93%. PT DENIES ANY PAIN. VSS.
--- NOTE | 2022-08-23 16:00 | NUR ---
PT RESTING IN BED. DENIES ANY PAIN. FAMILY AT BEDSITE. PT TOLERATING NASAL CANNULA WELL. REPOSITIONED IN BED.
--- NOTE | 2022-08-23 22:00 | NUR ---
RESTING IN BED IN STABLE CONDITION. HEMODYNAMICALLY STABLE. WATCHING HIS BP.
--- NOTE | 2022-08-23 23:30 | NUR ---
SWALLOW EVAL DONE AND PT PASSED IT WITHOUT ANY PROBLEMS. WILL GIVE PO MEDS.
[2022-08-24] VITALS (27 sets, daily range): BP systolic 69–153; BP diastolic 42–82
--- NOTE | 2022-08-24 00:45 | NUR ---
PT IS RESTING IN BED IN STABLE CONDITION. MEDICATED FOR HIGH BP 188/78 WITH GOOD EFFECT.
--- NOTE | 2022-08-24 02:40 | NUR ---
REMOVED THE RIGHT FEMORAL LINE WITHOUT ANY BLEEDING, BRUISING OR HEMATOMA. PRESSURE HELD FOR 20 MINUTES AND PRESSURE DRSG APPLIED. MONITORING SIDE.
--- NOTE | 2022-08-24 04:35 | NUR ---
RESTING IN STABLE CONDITION AMD VS'S. RIGHT FEMORAL DRSG DRY AND INTACT. NO COMPLAINS. CONFUSED TO TIME PLACE AND PERSON.
[2022-08-24 06:25] LABS: IMMATURE GRANULOCYTES 1.2 % (0.0-5.0); LYMPH% 5.5 % (15-41); MEAN CELL VOLUME 86.5 fL CALC (80.0-100.0); MEAN CORPUSCULAR HGB 28.8 pG CALC (26.0-32.0); MEAN CORPUSCULAR HGB CONC 33.3 g/dL CAL (32.0-36.0); MONO% 3.6 % (2-13); NEUT# 9.58 thou/uL (1.82-7.42); NEUT% 89.7 % (42-76); RED BLOOD COUNT 4.51 mill/uL (4.70-6.10); RED CELL DISTRI WIDTH 12.6 % (11.5-15.5)
[2022-08-24 07:02] LABS: ALBUMIN 2.9 g/dL (3.2-5.0); ALKALINE PHOSPHATASE 173 u/l (38-126); ANION GAP 8 (6-22 (CALC)); BILIRUBIN, TOTAL 0.4 mg/dL (0.2-1.3); BUN 18 mg/dL (8-23); BUN/CREATININE RATIO 31 (12-20 (CALC)); C-REACTIVE PROTEIN 4.5 mg/dL (0-0.9); CARBON DIOXIDE 28 mmol/l (22-30); CHLORIDE 101 mmol/l (95-108); CREATININE 0.6 mg/dL (0.7-1.3); GFR FOR AFR.AMER. > 60 ML/MIN (>=60 (CALC)); GFR OTHER RACES > 60 ML/MIN (>=60 (CALC)); POTASSIUM 4.1 mmol/l (3.5-5.1); SGOT/AST 58 u/l (19-48); SODIUM 134 mmol/l (137-146); TOTAL PROTEIN 5.9 g/dL (6.3-8.2)
--- NOTE | 2022-08-24 08:35 | NUR ---
Patient sitting up in bed. Brother at bedside. Patient states he is having pain all over at an 8. Patient given pain medication. Patient is SB on the monitor. No s/s of distress. Will continue to monitor.
--- NOTE | 2022-08-24 10:00 | NUR ---
Patient sitting up in bed. Niece at bedside. Patient denies any pain at this time. Niece states that patient does not have an official diagnosis of dementia, however he does have periods of confusion. NAD. Will continue to monitor.
--- NOTE | 2022-08-24 12:27 | NUR ---
Patient c/o generalized pain. Medication given as prescribed. Patient requesting xanax, patient advised medication received this morning. Niece at bedside. NAD. Will continue to monitor.
--- NOTE | 2022-08-24 14:10 | NUR ---
Patient appears to be resting with eyes closed. No s/s of distress. Will continue to monitor.
--- NOTE | 2022-08-24 16:28 | NUR ---
Patient appears to be resting with eyes closed. Family member at bedside. No s/s of distress. Will continue to monitor.
--- NOTE | 2022-08-24 18:00 | NUR ---
Patient sitting up in bed. Family at bedside. Patient denies any pain at this time. NAD noted.
--- NOTE | 2022-08-24 22:00 | NUR ---
PT IN BED IN NO DISTRESS IN STABLE CONDITION. MONITORING
[2022-08-25] VITALS (28 sets, daily range): BP systolic 108–195; BP diastolic 43–113
--- NOTE | 2022-08-25 | NUR ---
PT IS RESTING IN BED WITH HIS EYS CLOSED. IN STABLE CONDITION AND VS'S.
--- NOTE | 2022-08-25 02:00 | NUR ---
PT IN BED IN STABLE CONDITION AND VS'S. NOT IN ANY DISTRESS. ON VEPOTERM.
--- NOTE | 2022-08-25 04:00 | NUR ---
PT SLEPT THRU THE NITE. NO EVENTS. MEDICATED FOR PAIN PRN.
[2022-08-25 05:48] LABS: HEMOGLOBIN 12.5 g/dl (14.0-18.0); MEAN CELL VOLUME 87.6 fL CALC (80.0-100.0); MEAN CORPUSCULAR HGB 28.8 pG CALC (26.0-32.0); MEAN CORPUSCULAR HGB CONC 32.9 g/dL CAL (32.0-36.0); RED BLOOD COUNT 4.34 mill/uL (4.70-6.10); RED CELL DISTRI WIDTH 12.5 % (11.5-15.5)
--- NOTE | 2022-08-25 05:57 | NUR ---
SLEEPING COMFORTABLY IN STABLE CONDITION. MONITORING.
[2022-08-25 06:31] LABS: ALBUMIN 2.8 g/dL (3.2-5.0); ALKALINE PHOSPHATASE 174 u/l (38-126); ANION GAP 8 (6-22 (CALC)); BILIRUBIN, TOTAL 0.5 mg/dL (0.2-1.3); BUN 30 mg/dL (8-23); BUN/CREATININE RATIO 44 (12-20 (CALC)); CARBON DIOXIDE 30 mmol/l (22-30); CHLORIDE 102 mmol/l (95-108); CREATININE 0.7 mg/dL (0.7-1.3); GFR FOR AFR.AMER. > 60 ML/MIN (>=60 (CALC)); GFR OTHER RACES > 60 ML/MIN (>=60 (CALC)); MAGNESIUM 2.2 mg/dL (1.6-2.3); SGOT/AST 55 u/l (19-48); SODIUM 135 mmol/l (137-146); TOTAL PROTEIN 5.4 g/dL (6.3-8.2)
--- NOTE | 2022-08-25 08:33 | NUR ---
Patient repositioned supine eating breakfast. Patient states he is having generalized pain of a 9. Medicated as ordered. Patient is SR on the monitor. Oxygen saturation of 82% with vapotherm at 30L and 80% FiO2. FiO2 increased to 90%. No s/s of distress. Bed in low position. Call light next to R leg. Will continue to monitor.
--- NOTE | 2022-08-25 10:31 | NUR ---
Patient lying in bed. Repositioned to L side. Family at bedside. No s/s of distress. Will continue to monitor.
--- NOTE | 2022-08-25 14:14 | NUR ---
Patient lying in bed. Patient declined repositioning at this time. Patient made aware of the benefits of repositioning, but refused. Patient c/o mild generalied pain, provided Tylenol. Patient is SB on the monitor. No s/s of distress. Bed in low position. Call light on patient's stomach. Will continue to monitor.
--- NOTE | 2022-08-25 16:37 | NUR ---
Patient refused to be repositioned. States he is fine for now. Patient is SB on the monitor. No s/s of distress. Will continue to monitor.
--- NOTE | 2022-08-25 18:00 | NUR ---
Patient repositioned to L side. Family at bedside. No s/s of distress.
--- NOTE | 2022-08-25 21:58 | NUR ---
PT SLEEPING IN STABLE CONDITION AND VS'S. NO COMPLAINS.
[2022-08-26] VITALS (24 sets, daily range): BP systolic 113–159; BP diastolic 51–68
--- NOTE | 2022-08-26 00:27 | NUR ---
Medicated for high blood pressure with hydralazine 10mg iv with good effect. Sleeping and in stable condition.
--- NOTE | 2022-08-26 02:00 | NUR ---
PT SLEEPING COMFORTABLY WITHOUT ANY DISTRESS. STABLE VS'S. NOT IN ANY DISTRESS.
[2022-08-26 06:13] LABS: BASO% 0.1 % (0-3); HEMATOCRIT 39.9 % (39.0-50.0); HEMOGLOBIN 13.7 g/dl (14.0-18.0); IMMATURE GRANULOCYTES 0.3 % (0.0-5.0); LYMPH% 4.7 % (15-41); MEAN CELL VOLUME 88.5 fL CALC (80.0-100.0); MEAN CORPUSCULAR HGB 30.4 pG CALC (26.0-32.0); MEAN CORPUSCULAR HGB CONC 34.3 g/dL CAL (32.0-36.0); MONO% 1.6 % (2-13); NEUT# 9.92 thou/uL (1.82-7.42); NEUT% 93.3 % (42-76); RED BLOOD COUNT 4.51 mill/uL (4.70-6.10); RED CELL DISTRI WIDTH 12.5 % (11.5-15.5)
[2022-08-26 06:14] LABS: ALKALINE PHOSPHATASE 195 u/l (38-126); ANION GAP 7 (6-22 (CALC)); BILIRUBIN, TOTAL 0.4 mg/dL (0.2-1.3); BUN 29 mg/dL (8-23); BUN/CREATININE RATIO 43 (12-20 (CALC)); CARBON DIOXIDE 32 mmol/l (22-30); CHLORIDE 103 mmol/l (95-108); CREATININE 0.7 mg/dL (0.7-1.3); GFR FOR AFR.AMER. > 60 ML/MIN (>=60 (CALC)); GFR OTHER RACES > 60 ML/MIN (>=60 (CALC)); POTASSIUM 4.3 mmol/l (3.5-5.1); SGOT/AST 59 u/l (19-48); SODIUM 137 mmol/l (137-146); TOTAL PROTEIN 5.7 g/dL (6.3-8.2)
--- NOTE | 2022-08-26 07:59 | NUR ---
REPORT RECIEVED FROM NIGHT RN. PT IS ALERT, LYING IN BED. LUNG SOUNDS COARSE. PT ON VAPOTHERM 40L AT 100%; OS SAT 92%. NON-PRODUCTIVE COUGH. HEART RHYTHM REGULAR; SINUS TANIKA. BOWEL SOUNDS ACTIVE. LEDESMA CATHETER IN PLACE. ABDOMEN SOFT, NON-TENDER. PULSES STRONG ALL EXTREMETIES. NON-PITTING EDEMA PRESENT BILATERAL HANDS / FEET. PT DENIES ANY PAIN. BREAKFAST TRAY BROUGHT AND PT EATING SITTING UP IN BED. CALL LIGHT IN REACH.
--- NOTE | 2022-08-26 10:13 | NUR ---
PT RESTING IN BED. PAIN MEDS GIVEN PER MD ORDERS. TV TURNED ON FOR PATIENT. PT DOING WELL WITH CURRETN VAPOTHERM SETTINGS. CALL LIGHT IN REACH. VSS. AT THIS TIME.
--- NOTE | 2022-08-26 12:06 | NUR ---
PT SITTING UP IN BED. FAMILY AT BEDSIDE. LUNCH TRAY BROUGHT TO PT. VSS AT THIS TIME. CALL LIGHT IN REACH.
--- NOTE | 2022-08-26 14:00 | NUR ---
PT RESTING IN BED. FAMILY AT BEDSIDE. PT O2 SAT >90% ON CURRETN VAPOTHERM SETTINGS; UNABLE TO TITRATE DOWN AT THIS TIME. CALL LIGHT AND BELONGINGS WITHIN REACH.
--- NOTE | 2022-08-26 15:55 | NUR ---
PT SITTING IN BED. AT BEDSIDE. VSS AT THIS TIME. CALL LIGHT AND BELONGINGS WITHIN REACH.
--- NOTE | 2022-08-26 18:00 | NUR ---
PT SITTING UP IN BED. FAMILY AT BEDSIDE. FAMILY UPDATED ON PT CONDITION. DINNER TRAY BROUGHT TO PT. CALL LIGHT AND BELONGINGS WITHIN REACH. VSS.
--- NOTE | 2022-08-26 20:25 | NUR ---
PT LAYING IN BED WITH NAD. PT C/O LOWER ABD PAIN 8/10, MEDICATED AND STATED PAIN DECREASED TO 6/10. BED IN THE LOWEST POSITION, CALL LIGHT WITH REACH AND ON VAPOTHERM WITH O2 SAT OF 92. WILL CONTINUE TO MONITOR.
[2022-08-27] VITALS (25 sets, daily range): BP systolic 127–185; BP diastolic 54–79
--- NOTE | 2022-08-27 00:52 | NUR ---
PT RESTING IN BED WITH EYES CLOSED AND APPEARS COMFORTABLE WITH NAD. WILL CONTINUE TO MONITOR.
[2022-08-27 05:23] LABS: BASO% 0.1 % (0-3); HEMATOCRIT 39.5 % (39.0-50.0); HEMOGLOBIN 12.9 g/dl (14.0-18.0); IMMATURE GRANULOCYTES 1.1 % (0.0-5.0); LYMPH% 6.3 % (15-41); MEAN CORPUSCULAR HGB 29.1 pG CALC (26.0-32.0); MEAN CORPUSCULAR HGB CONC 32.7 g/dL CAL (32.0-36.0); MONO% 3.4 % (2-13); NEUT# 11.24 thou/uL (1.82-7.42); NEUT% 89.1 % (42-76); RED BLOOD COUNT 4.44 mill/uL (4.70-6.10); RED CELL DISTRI WIDTH 12.4 % (11.5-15.5)
[2022-08-27 05:48] LABS: ALBUMIN 2.8 g/dL (3.2-5.0); ALKALINE PHOSPHATASE 219 u/l (38-126); ANION GAP 6 (6-22 (CALC)); BILIRUBIN, TOTAL 0.5 mg/dL (0.2-1.3); BUN 25 mg/dL (8-23); BUN/CREATININE RATIO 43 (12-20 (CALC)); CARBON DIOXIDE 31 mmol/l (22-30); CHLORIDE 105 mmol/l (95-108); CREATININE 0.6 mg/dL (0.7-1.3); GFR FOR AFR.AMER. > 60 ML/MIN (>=60 (CALC)); GFR OTHER RACES > 60 ML/MIN (>=60 (CALC)); POTASSIUM 4.6 mmol/l (3.5-5.1); SGOT/AST 87 u/l (19-48); SODIUM 137 mmol/l (137-146); TOTAL PROTEIN 5.6 g/dL (6.3-8.2)
--- NOTE | 2022-08-27 07:35 | NUR ---
Recieved complete report from night nurse, patient on vapotherm, unlabored respirations, answers questions, AOX3, no c/o of pain. Inspiratory and exp wheezes audible, bowel sounds active, pedal pulses palpated. Bed in low position, upper bed rails raised, and call light within reach.
--- NOTE | 2022-08-27 08:30 | NUR ---
DR. CHRISTINE ENTERED ROOM TO ASSESS AND SPEAK WITH PATIENT ABOUT HIS PLAN OF CARE. DOCTOR COMMUNICATED WITH US TO ATTEMPT TO TITRATE OXYGEN TO SEE HOW PATIENT O2 LEVELS AND RESPIRATORY EFFORTS RESPOND. HOG KILLER TRANSLATED TO PATIENT AND HE VERBALLY ACKNOWLEDGED THAT HE UNDERSTOOD.
--- NOTE | 2022-08-27 09:10 | NUR ---
PATIENT TITRATED DOWN FROM 40L TO 35. AFTER APPROX 20 MIN PATIENTS O2 RESPIRATORY EFFORTS INCREASED. O2 WAS TITRATED BACK UP TO 40L. PATIENTS EFFORTS IMPROVED.
--- NOTE | 2022-08-27 10:42 | NUR ---
PT'S SATS DROPPING INTO UPPER 70s, RESPIRATORY AWARE, PLACES NRB OVER VAPOTHERM. RESPONSE GOOD PT SEEN 96%, AT REST IN THE BED WITH EYES CLOSED.
--- NOTE | 2022-08-27 13:00 | NUR ---
PATIENT RESTING IN BED WITH VAPOTHERM AND NON REBREAHTER MASK. O2'S BETWEEN 83 TO LOW 90'S. CURRENTLY AT BEDSIDE. BREATHING HAS BECOME MORE LABORED AT AROUND 28 RESPIRATIONS PER MINUTE. O2'S SUSTAINING. BED IN LOW POSITION WITH UPPER BED RAILS RAISED AND CALL LIGHT WITHIN REACH.
--- NOTE | 2022-08-27 14:53 | NUR ---
08/27/2022-PT consult received and pt chart reviewed. PT spoke with RN and case management. Pt at this time is struggling to maintain O2 stats in the low 90s and desats with any mobility and eating. Pt is currently on a non-rebreather and RN reports she is waiting to discuss further with physician as he is still struggling. PT will hold at this time due to pt not being able to maintain O2 stats with limited mobility making him not appropriate for PT evaluation. Will attempt again later as pt is appropriate and schedule allows. -Ruthy Chaney, PT, DPT
--- NOTE | 2022-08-27 16:20 | NUR ---
PATIENT RESTING IN BED WITH VAPOTHERM AND NON REBREATHER MASK APPLIED. VITALS STABLE AND O2'S RUNNING BETWEEN UPPER 80'S TO LOW 90'S. BREATHING STILL SLIGHLTY LABORED AT AROUND 30 RESPIRATIONS PER MINUTE. REENA FROM RT AWARE. DOCTOR NANCI NOTIFIED.
--- NOTE | 2022-08-27 17:50 | NUR ---
PATIENTS CONDITION REMAINS UNCHANGED. HAS BEEN AT BEDSIDE FOR MOST OF THE DAY. BREATHING STILL LABORED WITH O2 LEVELS SUSTAINING FROM UPPER 80'S TO LOW 90'S.
--- NOTE | 2022-08-27 19:15 | NUR ---
awake. & son @ bedside. son translates for this teletypewriter operator. o2 cont per nc & vapotherm. sob with ANY activity. material damage appraiser shows sinus rhythm pacs pvcs. #20 rw saline lock. po fluids taken fair. saldivar cath in place. urine clear yellow. turned & repositioned. fall & air/contact precautions cont.
--- NOTE | 2022-08-27 22:00 | NUR ---
eyes closed. no distress. o2 cont.
[2022-08-28] VITALS (74 sets, daily range): BP systolic 73–202; BP diastolic 41–96
--- NOTE | 2022-08-28 02:00 | NUR ---
awake. has nonprod cough. o2 cont. surveillance monitor shows sinus rhythm pacs pvcs.
--- NOTE | 2022-08-28 04:30 | NUR ---
incont of lg formed br stool. no distress.
--- NOTE | 2022-08-28 05:30 | NUR ---
awake. water given per request. o2 cont. pt cont to desat with ANY activity.
[2022-08-28 07:13] LABS: BASO% 0.1 % (0-3); HEMATOCRIT 41.2 % (39.0-50.0); HEMOGLOBIN 13.6 g/dl (14.0-18.0); IMMATURE GRANULOCYTES 0.4 % (0.0-5.0); MEAN CELL VOLUME 86.6 fL CALC (80.0-100.0); MEAN CORPUSCULAR HGB 28.6 pG CALC (26.0-32.0); MONO% 2.9 % (2-13); NEUT# 15.53 thou/uL (1.82-7.42); NEUT% 90.6 % (42-76); RED BLOOD COUNT 4.76 mill/uL (4.70-6.10); RED CELL DISTRI WIDTH 12.4 % (11.5-15.5)
[2022-08-28 07:24] LABS: ALKALINE PHOSPHATASE 246 u/l (38-126); ANION GAP 7 (6-22 (CALC)); BUN 19 mg/dL (8-23); BUN/CREATININE RATIO 30 (12-20 (CALC)); C-REACTIVE PROTEIN 4.9 mg/dL (0-0.9); CARBON DIOXIDE 30 mmol/l (22-30); CHLORIDE 99 mmol/l (95-108); CREATININE 0.6 mg/dL (0.7-1.3); GFR FOR AFR.AMER. > 60 ML/MIN (>=60 (CALC)); GFR OTHER RACES > 60 ML/MIN (>=60 (CALC)); POTASSIUM 4.4 mmol/l (3.5-5.1); SGOT/AST 73 u/l (19-48); SODIUM 132 mmol/l (137-146)
--- NOTE | 2022-08-28 07:30 | NUR ---
PT SEEN AT REST IN THE BED, ASSISTED TO TURN TO LEFT SIDE FOR COMFORT. PT WEARING VAPOTHERM AT 40/100 SETTINGS, ALSO HAS NRB IN PLACE, SATS IN THE UPPER 80s TO LOW 90s.
--- NOTE | 2022-08-28 10:45 | NUR ---
PT HAS BEEN INTUBATED AGAIN. DR ORDONEZ SPOKE WITH DAUGHTER AT BEDSIDE REGARDING NEED FOR SAME, SHE AGREES TO PROCEED. DR WOLFF ARRIVED FROM ER AND INTUBATED, PLACED OG AND CENTRAL LINE, ALL UNEVENTFUL. PT AT THIS TIME IS VENTED, SATS IN THE LOW 90s, NO DISTRESS NOTED.
--- NOTE | 2022-08-28 14:03 | NUR ---
08/28/2022 PT consult recieved and chart reviewed. PT spoke with RN and Case Management, pt was intubated and central line placed. Also per case management, they are looking at transferring pt to higher level of care. Pt is not appropriate for PT at this time. PT will sign off. Please re-consult if pt impoves or status changes. Thank you. Ruthy Chaney, PT, DPT
--- NOTE | 2022-08-28 14:35 | NUR ---
PT STARTED ON LEVOPHED PER LOW BP FOLLOWING DILAUDID ADMINISTRATION. PT SEDATED WITH PROPOFOL, APPEARS COMFORTABLE. FAMILY AT BEDSIDE.
--- NOTE | 2022-08-28 14:44 | NUR ---
Pt dicharged from OT caseload due to change of status. Pt is not appropriate for OT intervention at this time
--- NOTE | 2022-08-28 19:04 | NUR ---
PT HAS BEEN CLEARED FOR TRANSFER TO [facility]. REPORT WAS CALLED TO THE NURSE IN POD 5EC BED 5. POSITIVE TRANSPORT HERE TO PICK PT UP. PT LEAVES [facility] IN CRITICAL CONDITION, VENTED AND SEDATED. DAUGHTER TATIANNA UPDATED BY PHONE, AND DAUGHTER IN LAW ARRIVED IN HOSPITAL FOR VISIT AND WAS UPDATED.
--- NOTE | 2022-08-28 19:20 | NUR ---
positive transport left.
== END 2022-08-28 19:20 | disposition short-term general hospital (02) | DRG 871 ==
LOC: ED 21:22 → ICU 08-22 00:14
PROVIDERS: Emergency Medicine; Internal Medicine; ADMIT Internal Medicine; ATTEND Internal Medicine
PROC: 0BH17EZ Insertion of Endotracheal Airway into Trachea, Via Natural or Artificial Opening (ICD-10-PCS; principal; 2022-08-21)
PROC: 0T9B70Z Drainage of Bladder with Drainage Device, Via Natural or Artificial Opening (ICD-10-PCS; 2022-08-21)
PROC: 5A09357 Assistance with Respiratory Ventilation, Less than 24 Consecutive Hours, Continuous Positive Airway Pressure (ICD-10-PCS; 2022-08-21)
PROC: 06HY33Z Insertion of Infusion Device into Lower Vein, Percutaneous Approach (ICD-10-PCS; 2022-08-21)
PROC: 5A1945Z Respiratory Ventilation, 24-96 Consecutive Hours (ICD-10-PCS; 2022-08-21)
PROC: 3E043XZ Introduction of Vasopressor into Central Vein, Percutaneous Approach (ICD-10-PCS; 2022-08-22)
PROC: 5A0945A Assistance with Respiratory Ventilation, 24-96 Consecutive Hours, High Flow/Velocity Cannula (ICD-10-PCS; 2022-08-23)
PROC: 0BH17EZ Insertion of Endotracheal Airway into Trachea, Via Natural or Artificial Opening (ICD-10-PCS; 2022-08-28)
PROC: 5A1935Z Respiratory Ventilation, Less than 24 Consecutive Hours (ICD-10-PCS; 2022-08-28)
PROC: 02HV33Z Insertion of Infusion Device into Superior Vena Cava, Percutaneous Approach (ICD-10-PCS; 2022-08-28)
DX: A41.89 Other specified sepsis (principal); J12.82 Pneumonia due to coronavirus disease 2019; U07.1 COVID-19; J80 Acute respiratory distress syndrome; J44.0 Chronic obstructive pulmonary disease with (acute) lower respiratory infection; R65.20 Severe sepsis without septic shock; F03.90 Unspecified dementia, unspecified severity, without behavioral disturbance, psychotic disturbance, mood disturbance, and anxiety; I48.0 Paroxysmal atrial fibrillation; I10 Essential (primary) hypertension; J84.10 Pulmonary fibrosis, unspecified; F41.9 Anxiety disorder, unspecified; R00.1 Bradycardia, unspecified; G89.29 Other chronic pain; Z79.891 Long term (current) use of opiate analgesic; Z87.820 Personal history of traumatic brain injury; Z79.01 Long term (current) use of anticoagulants
CPT/HCPCS: J1650; J2060; Q9967; S0164